=== PATIENT | male | born 1950 | race Caucasian/White ===

== ENCOUNTER 2018-03-18 08:41 | Outpatient (REF) | payer MEDICARE, OTHER, SELFPAY ==
[2018-03-18 12:48] LABS: HCT 40.7 % (40.0-50.0); HGB 14.2 g/dL (13.5-17.5); Mean Corp. HGB Concentration 34.9 g/dL (32.0-36.0); Mean Corpuscular Hemoglobin 32.5 pg (27.0-33.0); Mean Corpuscular Volume 93.1 fL (80-95); Mean Platelet Volume 10.6 fL (8.0-11.0); Platelet Count 172 x1000/uL (130-400); RBC 4.37 m/cumm (4.50-6.00); RBC Distribution Width 13.6 % (11.8-14.1); White Blood Cell Count 5.76 k/cumm (4.4-10.8)
[2018-03-18 13:13] LABS: ALT 44 U/L (12-78); AST 29 U/L (15-37); Alkaline Phosphatase 54 U/L (46-116); Anion Gap 10.9 mmol/L (3-11); BUN 13 mg/dL (7-18); Bilirubin, Total 0.6 mg/dL (0.2-1.0); CO2 25.1 mmol/L (21.0-32.0); Calcium 9.1 mg/dL (8.5-10.1); Chloride 105 mmol/L (98-107); Cholesterol 183 mg/dL (50-200); Estimated GFR 55.23 (mL/min/1.73m2); Glucose 163 mg/dL (70-100); HDL Cholesterol 46 mg/dL (40-60); LDL CHOLESTEROL 115 mg/dL (<100); Potassium 4.7 mmol/L (3.5-5.1); Sodium 141 mmol/L (136-145); Total Protein 7.3 g/dL (6.4-8.2); Triglyceride 125 mg/dL (30-150)
[2018-03-19 09:17] LABS: PSA, Screening 0.8 ng/ml (0-4.5)
== END 2018-03-18 08:42 ==
LOC: NCHCN 08:41
PROVIDERS: PCP Nurse Practitioner Family; Visit Provider Family Medicine
DX: I10 Essential (primary) hypertension (principal); E11.9 Type 2 diabetes mellitus without complications; Z12.5 Encounter for screening for malignant neoplasm of prostate
CPT/HCPCS: 80053; 80061; 83721; 84153; 85027

== ENCOUNTER 2018-04-21 00:48 | Outpatient (CLI) | payer OTHER, MEDICARE, SELFPAY ==
--- NOTE | 2018-04-21 08:23 | DI.US_ITS ---
SYMPTOMS/DIAGNOSIS: FATTY LIVER DISEASE, K76.0 ABDOMINAL ULTRASOUND: Routine examination was performed. The abdominal aorta is within normal limits in size. The liver is enlarged. There is diffuse increased echogenicity of the liver consistent with fatty infiltration. No hepatic mass is seen. There is normal directional flow of the portal vein. There are stones seen within the gallbladder. They appear mobile. No gallbladder thickening, sludge or pericholecystic fluid is seen. The common duct is within normal limits at .7 cm. The pancreatic tail is not visualized due to overlying bowel. The remainder of the pancreas is unremarkable. The spleen is mildly enlarged measuring 14 cm in length. The kidneys are unremarkable. IMPRESSION: 1. Hepatomegaly. Hepatic steatosis. 2. Cholelithiasis. No biliary ductal dilatation.
== END 2018-04-21 01:08 ==
PROVIDERS: PCP Nurse Practitioner Family; Visit Provider Nurse Practitioner Family
DX: K76.0 Fatty (change of) liver, not elsewhere classified (principal); R16.2 Hepatomegaly with splenomegaly, not elsewhere classified; K80.20 Calculus of gallbladder without cholecystitis without obstruction
CPT/HCPCS: 76700

== ENCOUNTER → 2018-06-22 11:10 | Outpatient (BNVA) | payer MEDICARE, OTHER, SELFPAY | PROVIDERS: PCP Nurse Practitioner Family; Visit Provider Surgery | DX: Z12.11 Encounter for screening for malignant neoplasm of colon (principal); Z86.010 Personal history of colon polyps; I10 Essential (primary) hypertension; E11.9 Type 2 diabetes mellitus without complications; Z79.84 Long term (current) use of oral hypoglycemic drugs ==

== ENCOUNTER 2018-06-29 06:21 | Day surgery (SDC) | payer MEDICARE, OTHER, SELFPAY ==
[2018-06-29 06:29] VITALS: BP 101/68; PULSE 84; RESP 16; TEMP 37.1; O2SAT 95
--- NOTE | 2018-06-29 06:48 | COLE_ITS ---
Date of service: 06/29/18 Time of Service: 07:30 Colonoscopy Report Date of procedure: 06/29/18 Pre-op diagnosis general: Hx of polyps Procedure: Colonoscopy with polypectomy by cold forceps and cold snare Surgeon: Deisi Rjaan Anesthesia proc note operative: MAC (Hayde Robbins, [employer]/ ASA 2) Estimated blood loss (mL): 5 Pathology: other (cecal polyp x 2, ascending polyp, transverse polyp, rectal polyp) Complications: None Disposition: same day Indications: Mr. Crespo is a pleasant 68-year-old male who was seen in the office for a colonoscopy. He has a history of polyps. Risk, benefits, complications were reviewed with him and he wished to proceed. No guarantees were given or implied. Prep: Miralax/Dulcolax Procedure Start Time: 07:30 Procedure End Time: 08:16 Retraction Time: 27 minutes Findings: 4 small sessile polyps in the cecum, ascending and transverse colon. One larger adenomatous pendunculated polyp in the rectum Procedure Description: After informed consent was obtained the patient was taken to the procedure room and placed in a left decubitous position. Monitors were applied and a time out was done. The patients name, date of , procedure, allergies to medications and metal in their body was reviewed. The patient was then sedated. Once sedated and comfortable a rectal exam was done. External exam was normal. Internal exam revealed a normal sphincter tone and no palpable masses. The prostate felt smooth. The scope was then introduced and retroflexed. No internal hemorrhoids were identified. The scope was then advanced to the cecum without difficulty. The TI and appendiceal orifice were identified. The prep was OK. There was some stool noted in the rectm and distal sigmoid colon. Liquid stool noted in the right colon which was suctioned out. The scope was then slowly retracted over 27 minutes back into the rectum. 5 polyps were removed. Polyps in the cecum, ascending and transverse colon were removed with cold forceps, rectal polyp was removed with cold snare. The scope was removed and the patient was woken up and taken back to Same day surgery in stable condition. The patient tolerated the procedure well and there were no immediate complications. Follow up: The patient should follow up in 3-5 years unless they develop changes in bowel habits or other new gastrointestinal complaints.
--- NOTE | 2018-06-29 06:50 | PDOC.DSDIS_ITS ---
Discharge Plan Disposition Patient Disposition: HOME Condition: Good Discharge Details Reason For Visit: Hx of polyps Attending Provider: Deisi Rajan Primary Care Provider: Maryann Spaulding Home Meds and New Rx's Prescriptions: Continue tamsulosin [Flomax] 0.4 mg capsule 0.4 mg PO DAILY RF: 0 simvastatin 10 MG tablet 10 mg PO DAILY RF: 0 glipizide 5 MG tablet 5 mg PO DAILY RF: 0 Metoprolol Succinate 50 MG TAB.ER.24H 50 mg PO DAILY Qty: 30 RF: 0 valsartan-hydrochlorothiazide [Diovan HCT] 1 TAB tablet 1 tab PO DAILY RF: 0 aspirin [Aspir-81] 81 MG tablet,delayed release (DR/EC) 1 tab PO DAILY RF: 0 calcium carbonate [Calcium 600] 600 MG tablet 1 tab PO DAILY RF: 0 multivitamin 1 EACH capsule 1 cap PO DAILY RF: 0 sitagliptin-metformin [Janumet] 1 EACH tablet 1 tab PO DAILY RF: 0 coenzyme [id number] 1 EACH capsule 1 cap PO DAILY RF: 0 krill oil 500 MG capsule 1 cap PO DAILY RF: 0 bismuth subsalicylate [Pepto-Bismol] 262 mg/15 mL Suspension 524 mg PO ONCE PRNRF: 0 Discontinued polyethylene glycol 3350 17 gram powder in packet 255 g PO DAILY Qty: 15 RF: 0 bisacodyl [Dulcolax (bisacodyl)] 5 mg tablet,delayed release (DR/EC) 5 mg PO ONCE Qty: 4 RF: 0 Discharge Instructions Instructions: Colonoscopy (DC), Diverticulosis (DC), Colorectal Polyps (DC) Additional Instructions: Findings: multiple polyps diverticulosis Follow up: 3-5 years New Medications: none Please call if you develop: fevers >101.5 Nausea or Vomiting Abdominal pain that is not transient 1. Because there will be medication in your system for the next 24 hours, you may feel a little sleepy. Your coordination will be affected. Therefore: a. Do not drive or operate dangerous equipment for 24 hours. b. Do not drink alcohol beverages for 24 hours (not even beer). c. Plan to go home and rest for the day. 2. Generally there are no restrictions on your activity after a day or so has gone by, but you may feel a bit fatigued for a few days. 3 After you arrive home you may have a light meal and return to a normal diet as you can tolerate it without feeling sick to your stomach. 4. After surgery, you may feel pain or discomfort. This should be only transient , but if it persists please contact your doctor. 5. If there are any questions regarding the findings of your procedure, please feel free to contact your doctor. 6. If you are unable to contact your doctor with a problem, contact the hospital at [phone]. 7. Continue all your regular medications unless directed otherwise. I understand the above instructions and have no questions. Signature of Patient or Responsible Adult Escort Date/Time Name of Responsible Adult Escort Signature of Nurse Date/Time Activity:: Activity as Tolerated Diet:: high fiber diet Discharge Orders Discharge Orders: Discharge Order (Routine); Ordered 06/29/18 Ordered By: Deisi Rajan DS: Diagnosis Discharge Diagnosis (1) History of colonoscopy with polypectomy: Status: Acute (2) Diverticulosis: Status: Acute (3) Colorectal polyps: Status: Acute
[2018-06-29] MEDS: Lactated Ringers 1,000 ML 80 ML IV (07:06)
--- NOTE | 2018-06-29 07:42 | BOWEL_PTH ---
PATIENT: Carl Crespo LOC: [facility] U#:[id number] AGE/SX: 68/M ROOM: RE06/29/[address]: Deisi Rajan MD : [id number] BED: DIS: 06/29/2018 SPEC #: [id number] RECD: 06/29/18 12:36 STATUS: JOHNNIE REQ #: [id number] NADEEN: 06/29/18 07:[address]: Deisi Rajan DEPT: Surgical Specimen RECD BY: Darby Jeffrey ENTERED: 06/29/18 12:38 SP TYPE: Bowel OTHR DR: Maryann Spaulding Tissues: 1 - BIOPSY BOWEL 2 - BIOPSY BOWEL 3 - BIOPSY BOWEL 4 - BIOPSY BOWEL Procedures: GROSS AND MICRO LEVEL 4 Comments: [id number]
[2018-06-29 09:18] VITALS: BP 96/52; PULSE 69; RESP 16; TEMP 36.2; O2SAT 100
== END 2018-06-29 09:15 | disposition home or self-care (01) ==
PROVIDERS: PCP Nurse Practitioner Family; Visit Provider Surgery
PROC: 0DJD8ZZ Inspection of Lower Intestinal Tract, Via Natural or Artificial Opening Endoscopic (ICD-10-PCS; CPT 45378; principal; 2018-06-29 07:30)
DX: Z12.11 Encounter for screening for malignant neoplasm of colon (principal); D12.0 Benign neoplasm of cecum; D12.2 Benign neoplasm of ascending colon; D12.8 Benign neoplasm of rectum; K63.5 Polyp of colon; Z87.19 Personal history of other diseases of the digestive system; I10 Essential (primary) hypertension; E11.9 Type 2 diabetes mellitus without complications; Z79.84 Long term (current) use of oral hypoglycemic drugs; K21.9 Gastro-esophageal reflux disease without esophagitis
CPT/HCPCS: 45380; 45385; 88305

== ENCOUNTER 2019-02-15 02:11 | Outpatient (CLI) | payer MEDICARE, OTHER, SELFPAY ==
--- NOTE | 2019-02-21 11:55 | HOLTER_ITS ---
DATE OF DICTATION: February 19, 2019 DATE OF RECORDING: February 15, 2019 ANALYSIS: February 16, 2019 REFERRING PROVIDER: Cristi Wilkinson M.D. INDICATION: PVC's. FINDINGS: 1. Baseline sinus rhythm, 74-117 bpm, average 89 bpm. 2. Rare PVC, 0.1%, total of 81 PVC's in 24 hours, no ventricular tachycardia. 3. Rare PAC, < 0.1%, no SVT, no AF. 4. No bradycardia or pauses. 5. No symptoms recorded.
== END 2019-02-15 02:31 ==
PROVIDERS: PCP Nurse Practitioner Family; Visit Provider Student in an Organized Health Care Education/Training Program
DX: I49.3 Ventricular premature depolarization (principal)
CPT/HCPCS: 93225

== ENCOUNTER 2019-02-16 17:04 | Outpatient (CLI) | payer MEDICARE, OTHER, SELFPAY | END 2019-02-16 17:24 | PROVIDERS: PCP Nurse Practitioner Family; Visit Provider Student in an Organized Health Care Education/Training Program | DX: I49.3 Ventricular premature depolarization (principal) | CPT/HCPCS: 93226 ==

== ENCOUNTER 2019-02-19 19:54 | Outpatient (CLI) | payer MEDICARE, OTHER, SELFPAY | END 2019-02-19 20:14 | PROVIDERS: PCP Nurse Practitioner Family; Referring Provider Nurse Practitioner Family; Visit Provider Internal Medicine Cardiovascular Disease | DX: I49.3 Ventricular premature depolarization (principal) | CPT/HCPCS: 93227 ==

== ENCOUNTER → 2019-02-23 11:18 | Outpatient (BNVA) | payer MEDICARE, OTHER, SELFPAY | PROVIDERS: PCP Nurse Practitioner Family; Visit Provider Student in an Organized Health Care Education/Training Program | DX: I42.9 Cardiomyopathy, unspecified (principal); I49.3 Ventricular premature depolarization; I35.0 Nonrheumatic aortic (valve) stenosis; I10 Essential (primary) hypertension; E11.9 Type 2 diabetes mellitus without complications; Z79.84 Long term (current) use of oral hypoglycemic drugs | CPT/HCPCS: 99214 ==

== ENCOUNTER 2019-04-28 12:03 | Outpatient (REF) | payer MEDICARE, OTHER, SELFPAY ==
[2019-04-28 22:00] LABS: Abs Immature Grans 0.01 k/cumm (0.0-0.09); Absolute Basophil Count 0.04 k/cumm (0.0-0.2); Absolute Eosinophil Count 0.38 k/cumm (0.0-0.7); Absolute Lymphocyte Count 1.17 k/cumm (1.2-3.4); Absolute Monocyte Count 0.53 k/cumm (0.11-0.7); Absolute Neutrophil Count 3.83 k/cumm (1.2-6.7); Basophils % 0.7; Eosinophils % 6.4; HCT 40.9 % (40.0-50.0); HGB 13.8 g/dL (13.5-17.5); Immature Grans % 0.2; Lymphocytes % 19.6; Mean Corp. HGB Concentration 33.7 g/dL (32.0-36.0); Mean Corpuscular Hemoglobin 32.4 pg (27.0-33.0); Monocytes % 8.9; Neutrophils % 64.2; Platelet Count 186 x1000/uL (130-400); RBC 4.26 m/cumm (4.50-6.00); RBC Distribution Width 12.9 % (11.8-14.1); White Blood Cell Count 5.96 k/cumm (4.4-10.8)
[2019-04-28 22:19] LABS: ALT 38 U/L (16-63); AST 19 U/L (15-37); Albumin 4.1 g/dL (3.4-5.0); Alkaline Phosphatase 46 U/L (46-116); Anion Gap 11.1 mmol/L (3-11); BUN 25 mg/dL (7-18); Bilirubin, Total 0.6 mg/dL (0.2-1.0); CO2 25.9 mmol/L (21.0-32.0); CREATININE 1.44 mg/dL (0.70-1.30); Calcium 9.1 mg/dL (8.5-10.1); Chloride 104 mmol/L (98-107); Estimated GFR 48.93 (mL/min/1.73m2); Glucose 264 mg/dL (70-100); Potassium 4.4 mmol/L (3.5-5.1); Sodium 141 mmol/L (136-145); Total Protein 7.5 g/dL (6.4-8.2)
[2019-04-28 22:58] LABS: Prothrombin Time 10.4 sec (9.3-11.0)
== END 2019-04-28 12:23 ==
LOC: NCHCN 12:03
PROVIDERS: PCP Nurse Practitioner Family; Visit Provider Nurse Practitioner Family
DX: R00.8 Other abnormalities of heart beat (principal); I42.9 Cardiomyopathy, unspecified; E11.9 Type 2 diabetes mellitus without complications
CPT/HCPCS: 80053; 85025; 85610; 85730

== ENCOUNTER 2019-05-02 00:58 | Outpatient (CLI) | payer MEDICARE, OTHER, SELFPAY ==
--- NOTE | 2019-05-02 08:00 | DI.US_ITS ---
SYMPTOM/DIAGNOSIS: FATTY LIVER DISEASE, K76.0 ABDOMEN ULTRASOUND: The aorta and vena cava are unremarkable. Increased echogenicity is noted in the liver which has a maximal diameter of 13.5 cm. The findings would be consistent with fatty infiltration. The gallbladder wall is 2.3 mm. in thickness. A 7.6 mm. region of echogenicity in the gallbladder fundus would be consistent with an adherent gallstone. There is no evidence of ductal dilatation. The pancreas is unremarkable. The spleen measures up to 13.8 cm. suggesting mild splenomegaly. The left kidney measures 12.6 by 5.3 by 5.5 cm. The right kidney measures 11.9 by 6.7 by 6.4 cm. There is no evidence of an abdominal mass or free fluid. SUMMARY: A fatty liver is demonstrated and there is an apparent solitary gallstone in the gallbladder.
== END 2019-05-02 01:18 ==
PROVIDERS: PCP Nurse Practitioner Family; Visit Provider Nurse Practitioner Family
DX: K76.0 Fatty (change of) liver, not elsewhere classified (principal); R16.1 Splenomegaly, not elsewhere classified; K80.70 Calculus of gallbladder and bile duct without cholecystitis without obstruction
CPT/HCPCS: 76700

== ENCOUNTER 2019-06-28 06:51 | Emergency (ER) | payer MEDICARE, OTHER, SELFPAY ==
[2019-06-28 06:54] VITALS: BP 143/64; PULSE 104; RESP 16; TEMP 36.6; O2SAT 99
--- NOTE | 2019-06-28 07:16 | ED.GENADUL_ITS ---
Discharge Plan Disposition Patient Disposition: HOME Condition: Stable Discharge Details Chief Complaint: Orthopedic Clinical Impression: Left knee pain Primary Care Provider: Maryann Spaulding ED Provider: Felicitas Kuhn Home Meds and New Rx's Prescriptions: Continued tamsulosin [Flomax] 0.4 mg capsule 0.4 mg PO DAILY RF: 0 metformin 1,000 mg tablet 1,000 mg PO BID RF: 0 Januvia 100 mg tablet 100 mg PO DAILY RF: 0 simvastatin 10 MG tablet 10 mg PO DAILY RF: 0 Metoprolol Succinate 50 MG TAB.ER.24H 50 mg PO DAILY Qty: 30 RF: 0 glipizide 5 mg tablet 10 mg PO DAILY RF: 0 valsartan-hydrochlorothiazide [Diovan HCT] 1 TAB tablet 1 tab PO DAILY RF: 0 aspirin [Aspir-81] 81 MG tablet,delayed release (DR/EC) 1 tab PO DAILY RF: 0 multivitamin 1 EACH capsule 1 cap PO DAILY RF: 0 krill oil 500 MG capsule 1 cap PO DAILY RF: 0 bismuth subsalicylate [Pepto-Bismol] 262 mg/15 mL Suspension 524 mg PO ONCE PRNRF: 0 Discharge Instructions Instructions: Knee Pain (ED) Additional Instructions: Apply ice to the affected area several times daily for 20 minutes at a time. Alternate Tylenol and Motrin as needed and directed for pain. Rest and elevate your left knee as much as possible. Follow-up with your primary care doctor next week for reevaluation and for possible referral for MRI if your symptoms do not improve or worsen. Return to the emergency department if you develop any worsening or new concerning symptoms. Discharge Data Discharge Date/Time-TO BE ENTERED AT DEPARTURE: 06/28/19 10:20 Discharge Physician: Felicitas Kuhn Medical Decision Making <Carl Mayorga MD - Last Filed: 06/28/19 22:50> Patient presents with complaint of left knee pain that most likely is gout given his history and presentation. However, 2 things are of concern. His entire leg is swollen distally despite him having it elevated over the last 24 hours. Doubt clot but think ultrasound appropriate to rule out. Has pain in medial knee and has been doing a lot bending and kneeling so consider meniscus injury as well. Seems reasonable to dose with colchicine for treatment of acute gout. We will give it a couple of days to see if he gets better and have him follow-up with primary care. If continues to have pain and swelling may need MRI. <Felicitas Kuhn DO - Last Filed: 06/28/19 10:21> 0800 -- Please see Dr. Mayorga's note for initial presentation and plan. 69-year-old male with a history of gout, diabetes, aortic stenosis, hypertension chronic venous insufficiency who presents with left medial knee pain for the past 4 days. He has been kneeling on both knees a lot working on a car but otherwise denies any known injury. Complaining of pain worse with flexion of the knee. Denies any fever, leg or calf pain. Left medial knee tender to touch but without any erythema, lesions or abscess. There is pain with valgus stress flexion. No other ligamentous instability. No calf tenderness. Neurovascular intact. Differential diagnosis includes gout, arthritis, knee strain/sprain, effusion, Meneses's cyst. Presentation/history not consistent with DVT or septic arthritis. Case endorsed to follow-up on left lower extremity Doppler ultrasound to rule out DVT. He was given [address] doses of colchicine per Dr. Mayorga. Plan that if ultrasound negative, to follow-up with the primary care doctor for reevaluation and for referral for MRI if symptoms do not improve or worsen. 1010 --Doppler ultrasound negative for DVT. Patient states his symptoms are improving. He was offered knee immobilizer or Clint wrap and prefers Clint wrap. He was advised to rest, ice and elevate and take Tylenol as needed and directed for pain and Motrin starting in the next few days. He was advised to follow-up with his primary care doctor for reevaluation and to return here with any concerns. HPI <Carl Mayorga MD - Last Filed: 06/28/19 22:50> General Mode of arrival: wheelchair . Date/Time Provider Initiated Documentation: 06/28/19 07:00 . Limitations to Documentation: no limitations . Information obtained by: patient . HPI Narrative: Patient presents to ED with left knee pain and swelling. He reports symptoms started about 4 days ago. Knee bothers him on the medial aspect and is swollen. In the last 24 hours his leg below the knee has become swollen as well. Denies having calf pain. Denies having history of clots. Has had his leg up for most of the last 24 hours. He does report a history of gout but states this does not quite feel the same. He denies any trauma but has been doing a lot of bending and kneeling while working on an old car. He denies fever, chest pain, shortness of breath. He has been using naproxen or ibuprofen without significant relief. He has not taken anything yet this morning. He presents for evaluation. Related Data Home Medications Medication Instructions Recorded Confirmed aspirin [Aspir-81] 1 tab PO DAILY 10/28/13 06/28/19 krill oil 1 cap PO DAILY 10/28/13 06/28/19 multivitamin 1 cap PO DAILY 10/28/13 06/28/19 valsartan-hydrochlorothiazide 1 tab PO DAILY 10/28/13 06/28/19 [Diovan HCT] simvastatin 10 mg PO DAILY tab-cap 04/08/16 06/28/19 tamsulosin 0.4 mg capsule 0.4 mg PO DAILY 04/18/18 06/28/19 bismuth subsalicylate 524 mg PO ONCE PRN 06/25/18 06/28/19 [Pepto-Bismol] glipizide 5 mg tablet 10 mg PO DAILY tab-cap 02/23/19 06/28/19 metformin 1,000 mg tablet 1,000 mg PO BID 02/23/19 06/28/19 sitagliptin 100 mg tablet 100 mg PO DAILY 02/23/19 06/28/19 Allergies Allergy/AdvReac Type Severity Reaction Status Date / Time enalapril Allergy Mild Verified 06/28/19 07:00 nabumetone [From Relafen] Allergy Mild unknown Verified 06/28/19 07:00 hay fever Allergy Mild uri Uncoded 06/28/19 07:00 symptoms General Stated Complaint: Orthopedic TELLY: 4 Review of Systems <Carl Mayorga MD - Last Filed: 06/28/19 22:50> Narrative: As documented in HPI otherwise negative as below. Const: no fever, chills, weakness Resp: no cough, SOB, pleuritic pain CV: no CP, diaphoresis, edema, syncope GI: no abdominal pain, nausea, vomiting, diarrhea Neuro: no headache, numbness, focal weakness, confusion PFSH <Carl Mayorga MD - Last Filed: 06/28/19 22:50> Medical History Aortic stenosis, mild (Chronic) Cardiomyopathy (Chronic) Chronic venous insufficiency (Chronic) Diabetes (Chronic) Hypertension (Chronic) Surgical History History of colonoscopy with polypectomy (Acute ~06/29/18) cecal polyp x 2, ascending polyp, transverse polyp, rectal polyp. History of total right knee replacement (TKR) (Acute) Social History Smoking/Tobacco Use Status: Former Tobacco Use Quit Date: 08/17/00 Pack-years: 30 Tobacco: How many years used: 30 Alcohol Intake: current Alcohol Intake frequency: 0-2 drinks per day Alcohol type: beer Drug use: Never Substance use type: does not use Do you feel safe at home: Yes Do you feel safe in your relationship?: Yes Exam <Carl Mayorga MD - Last Filed: 06/28/19 22:50> Narrative Exam Narrative: Vitals: Afebrile. Slightly elevated blood pressure and heart rate. Normal room air pulse oximetry. Const: WDWN male in NAD. HEENT: NC/AT. Normal facial exam. Eyes: Normal conjunctiva and sclera. Neck: Supple. Trachea midline. Lungs: Normal respiratory effort. Neuro: A+O x 3. CN grossly in tact. Good strength and no focal deficit. Ext: LLE with decreased ROM of the knee, effusion, warmth but no erythema. Tenderness medial aspect of knee. No calf tenderness. LLE edema 2+. NVI distal. Good pulses in foot. Skin: Warm and dry without rash. Course <Carl Mayorga MD - Last Filed: 06/28/19 22:50> Vital Signs Vital signs: Vital Signs Temperature 97.9 F 06/28/19 06:54 Pulse 104 H 06/28/19 06:54 Respiratory Rate 16 06/28/19 06:54 Blood Pressure 143/64 H 06/28/19 06:54 Pulse Oximetry 99 06/28/19 06:54 Temperature 97.9 F 06/28/19 06:54 Temperature Source Temporal Artery Scan 06/28/19 06:54 Pulse 104 H 06/28/19 06:54 Respiratory Rate 16 06/28/19 06:54 Respiratory Effort Non-Labored 06/28/19 06:59 Blood Pressure 143/64 H 06/28/19 06:54 Blood Pressure Position Sitting 06/28/19 06:54 Pulse Oximetry 99 06/28/19 06:54 Oxygen Delivery Method Room Air 06/28/19 06:54 Oxygen Flow Rate 0 06/28/19 06:54 Pain Level 10 06/28/19 07:02 Sign Out <Carl Mayorga MD - Last Filed: 06/28/19 22:50> Sign Out Data: Sign Out Comment: Pending ultrasound of left lower extremity. Last updated by Carl Mayorga MD at 06/28/19 07:50
--- NOTE | 2019-06-28 07:18 | DI.US_ITS ---
EXAM: US LOWER EXTREMITY VENOUS LT CLINICAL HISTORY: LLE pain/swelling TECHNIQUE: Left lower extremity venous ultrasound performed using grayscale, color-flow, and spectra l Doppler analysis. COMPARISON: US ABDOMEN from 05/02/2019 FINDINGS: The left common femoral, femoral and popliteal veins demonstrate normal compressibility, augmentation , and color Doppler. The posterior tibial veins are patent. The saphenofemoral junction appears unrem arkable. There is no evidence of a Meneses's cyst. IMPRESSION: No DVT.
[2019-06-28] MEDS: Colchicine 0.6 MG TAB 1.2 MG PO (07:23)
[2019-06-28] MEDS: Acetaminophen 500 MG TAB 1000 MG PO (07:25)
[2019-06-28] MEDS: Colchicine 0.6 MG TAB PO (08:21)
[2019-06-28 10:21] VITALS: BP 142/68; PULSE 95; RESP 16; TEMP 36.7; O2SAT 97
[2019-06-28 10:22] VITALS: BP 142/68; PULSE 95; TEMP 36.7; O2SAT 97
== END 2019-06-28 10:20 | disposition home or self-care (01) ==
PROVIDERS: Emergency Provider Physician Assistant; PCP Nurse Practitioner Family
DX: M25.562 Pain in left knee (principal); I10 Essential (primary) hypertension; E11.9 Type 2 diabetes mellitus without complications; Z79.84 Long term (current) use of oral hypoglycemic drugs
CPT/HCPCS: 99284; 93971

== ENCOUNTER 2019-07-26 12:33 | Outpatient (REF) | payer MEDICARE, OTHER, SELFPAY ==
[2019-07-26 20:41] LABS: Uric Acid 9.6 mg/dL (3.5-7.2)
== END 2019-07-26 12:53 ==
LOC: NCHCN 12:33
PROVIDERS: PCP Nurse Practitioner Family; Visit Provider Nurse Practitioner Family
DX: I10 Essential (primary) hypertension (principal); E11.9 Type 2 diabetes mellitus without complications; M10.9 Gout, unspecified; K76.0 Fatty (change of) liver, not elsewhere classified; R00.8 Other abnormalities of heart beat; I50.9 Heart failure, unspecified; N40.0 Benign prostatic hyperplasia without lower urinary tract symptoms; G47.33 Obstructive sleep apnea (adult) (pediatric)
CPT/HCPCS: 84550

== ENCOUNTER 2019-10-27 12:21 | Outpatient (REF) | payer MEDICARE, OTHER, SELFPAY ==
[2019-10-27 20:44] LABS: Anion Gap 10.2 mmol/L (3-11); BUN 19 mg/dL (7-18); CO2 27.8 mmol/L (21.0-32.0); CREATININE 1.36 mg/dL (0.70-1.30); Calcium 8.5 mg/dL (8.5-10.1); Chloride 101 mmol/L (98-107); Estimated GFR 52.27 (mL/min/1.73m2); Glucose 279 mg/dL (74-106); Potassium 4.5 mmol/L (3.5-5.1); Sodium 139 mmol/L (136-145); Uric Acid 7.1 mg/dL (3.5-7.2)
== END 2019-10-27 12:41 ==
LOC: NCHCN 12:21
PROVIDERS: PCP Nurse Practitioner Family; Visit Provider Nurse Practitioner Family
DX: E11.9 Type 2 diabetes mellitus without complications (principal); I10 Essential (primary) hypertension; M10.9 Gout, unspecified; K76.0 Fatty (change of) liver, not elsewhere classified; I50.9 Heart failure, unspecified
CPT/HCPCS: 80048; 84550

== ENCOUNTER 2020-05-16 12:36 | Outpatient (REF) | payer MEDICARE, OTHER, SELFPAY ==
[2020-05-16 22:13] LABS: ALT 35 U/L (16-63); AST 17 U/L (15-37); Alkaline Phosphatase 54 U/L (46-116); Anion Gap 9.4 mmol/L (3-11); BUN 19 mg/dL (7-18); Bilirubin, Total 0.5 mg/dL (0.2-1.0); CO2 26.6 mmol/L (21.0-32.0); CREATININE 1.33 mg/dL (0.70-1.30); Calcium 9.2 mg/dL (8.5-10.1); Chloride 106 mmol/L (98-107); Estimated GFR 53.47 (mL/min/1.73m2); Glucose 213 mg/dL (74-106); Potassium 4.4 mmol/L (3.5-5.1); Sodium 142 mmol/L (136-145); Total Protein 6.9 g/dL (6.4-8.2); Uric Acid 6.8 mg/dL (3.5-7.2)
== END 2020-05-16 12:56 ==
LOC: NCHCN 12:36
PROVIDERS: PCP Nurse Practitioner Family; Visit Provider Family Medicine
DX: E11.9 Type 2 diabetes mellitus without complications (principal); M10.9 Gout, unspecified; K76.0 Fatty (change of) liver, not elsewhere classified; K30 Functional dyspepsia
CPT/HCPCS: 80053; 84550

== ENCOUNTER 2020-11-01 13:34 | Outpatient (REF) | payer MEDICARE, OTHER, SELFPAY ==
[2020-11-01 21:25] LABS: BUN 20 mg/dL (7-18); CREATININE 1.3 mg/dL (0.70-1.30); Calcium 9.2 mg/dL (8.5-10.1); Chloride 103 mmol/L (98-107); Glucose 257 mg/dL (74-106); Potassium 4.9 mmol/L (3.5-5.1); Sodium 141 mmol/L (136-145)
== END 2020-11-01 13:35 | disposition home or self-care (01) ==
LOC: NCHCN 13:34
PROVIDERS: PCP Nurse Practitioner Family; Visit Provider Nurse Practitioner Family
DX: E11.9 Type 2 diabetes mellitus without complications (principal); N28.9 Disorder of kidney and ureter, unspecified; K76.0 Fatty (change of) liver, not elsewhere classified
CPT/HCPCS: 80048

== ENCOUNTER 2021-05-07 13:06 | Outpatient (REF) | payer MEDICARE, OTHER, SELFPAY ==
[2021-05-07 21:58] LABS: Abs Immature Grans 0.04 10^3/uL (0.0-0.06); Absolute Basophil Count 0.07 10^3/uL (0.0-0.2); Absolute Eosinophil Count 0.69 10^3/uL (0.0-0.7); Absolute Lymphocyte Count 1.46 10^3/uL (1.2-3.4); Absolute Monocyte Count 0.48 10^3/uL (0.1-0.8); Absolute Neutrophil Count 5.52 10^3/uL (1.2-6.7); Basophils % 0.8; Eosinophils % 8.4; HCT 41.8 % (40.0-50.0); HGB 13.9 g/dL (13.5-17.5); Immature Grans % 0.5; Lymphocytes % 17.7; MCH 31.5 pg (27.0-33.0); MCHC 33.3 % (32.0-36.0); MCV 94.8 fL (80-95); MPV 10.6 fL (8.0-11.0); Monocytes % 5.8; Neutrophils % 66.8; Nucleated RBC 0 %; RBC 4.41 10^6/uL (4.36-5.78); RDW 13.2 % (11.8-14.1); RDW-SD 45.8 fL; WBC 8.26 10^3/uL (4.4-10.8)
[2021-05-07 22:06] LABS: ALT 33 U/L (16-63); AST 20 U/L (15-37); Alkaline Phosphatase 47 U/L (46-116); Anion Gap 9.2 mmol/L (3-11); BUN 17 mg/dL (7-18); Bilirubin, Total 0.5 mg/dL (0.2-1.0); CO2 27.8 mmol/L (21.0-32.0); CREATININE 1.1 mg/dL (0.70-1.30); Calcium 9.1 mg/dL (8.5-10.1); Chloride 104 mmol/L (98-107); Glucose 120 mg/dL (74-106); Potassium 4.4 mmol/L (3.5-5.1); Sodium 141 mmol/L (136-145); Total Protein 7.1 g/dL (6.4-8.2); Uric Acid 6.1 mg/dL (3.5-7.2)
[2021-05-07 22:27] LABS: Platelet Count 196 10^3/uL (130-400)
== END 2021-05-07 13:07 | disposition home or self-care (01) ==
LOC: NCHCN 13:06
PROVIDERS: PCP Nurse Practitioner Family; Visit Provider Nurse Practitioner Family
DX: N28.9 Disorder of kidney and ureter, unspecified (principal); M10.9 Gout, unspecified; K80.20 Calculus of gallbladder without cholecystitis without obstruction; R00.8 Other abnormalities of heart beat; N40.0 Benign prostatic hyperplasia without lower urinary tract symptoms; G47.33 Obstructive sleep apnea (adult) (pediatric); K30 Functional dyspepsia; E11.9 Type 2 diabetes mellitus without complications
CPT/HCPCS: 80053; 84550; 85025

== ENCOUNTER 2021-06-11 00:48 | Outpatient (CLI) | payer MEDICARE, OTHER, SELFPAY ==
--- NOTE | 2021-06-11 | DI.US_ITS ---
Exam(s) US ABDOMEN EXAM: US ABDOMEN CLINICAL HISTORY: FATTY LIVER DISEASE,K76.0,GALLSTONES,K80.20 TECHNIQUE: Ultrasound abdomen performed using standard protocol. COMPARISON: US US ABDOMEN from 05/02/2019 US US ABDOMEN from 05/02/2019 FINDINGS: LIVER: Increased liver echogenicity, consistent with fatty infiltration, similar to the previous exam .. No focal liver lesions are seen.. GALLBLADDER: Single stone gallstone is again noted. No evidence of wall thickening. No pericholecyst ic fluid identified. JONES'S SIGN: Negative. BILIARY SYSTEM: No intrahepatic or extrahepatic biliary ductal dilation. KIDNEYS: Kidneys are symmetric in size. No evidence of renal calculi. No evidence of hydronephrosis. No renal mass or cyst identified. PANCREAS: Normal where visualized. SPLEEN: Not enlarged. ABDOMINAL AORTA AND IVC: Visualized portions normal caliber. ASCITES: None seen. IMPRESSION: Stable appendix steatosis. No focal mass. Solitary gallstone. DATA REPOSITORY:
== END 2021-06-11 01:08 ==
PROVIDERS: PCP Nurse Practitioner Family; Visit Provider Nurse Practitioner Family
DX: K80.20 Calculus of gallbladder without cholecystitis without obstruction (principal); K76.0 Fatty (change of) liver, not elsewhere classified
CPT/HCPCS: 76700

== ENCOUNTER → 2021-08-23 13:44 | Outpatient (BNVA) | payer MEDICARE, OTHER, SELFPAY | PROVIDERS: PCP Nurse Practitioner Family; Referring Provider Nurse Practitioner Family; Visit Provider Physical Therapy Assistant | DX: Z12.11 Encounter for screening for malignant neoplasm of colon (principal); Z86.010 Personal history of colon polyps; I10 Essential (primary) hypertension; E11.9 Type 2 diabetes mellitus without complications ==

== ENCOUNTER 2021-08-30 03:50 | Outpatient (CLI) | payer MEDICARE, OTHER, SELFPAY ==
[2021-08-30 10:06] LABS: Source Nasal/Nares
[2021-08-30 13:21] LABS: COVID-19 PCR Negative (Negative)
== END 2021-08-30 03:51 | disposition home or self-care (01) ==
LOC: LBO 03:50
PROVIDERS: PCP Nurse Practitioner Family; Visit Provider Surgery
DX: Z20.822 Contact with and (suspected) exposure to COVID-19 (principal)
CPT/HCPCS: 87635

== ENCOUNTER 2021-09-02 07:30 | Day surgery (SDC) | payer MEDICARE, OTHER, SELFPAY ==
--- NOTE | 2021-09-02 06:41 | COLE_ITS ---
Colonoscopy Report Date of procedure: 09/02/21 Pre-op diagnosis general: Colon Cancer Screening, hx of colon polyps Post-op diagnosis procedure note: other (polyps and diverticulosis) Procedure: Colonoscopy with polypectomy Surgeon: Deisi Rajan Anesthesia Type: General:No Airway (Hayde Robbins, DEB/ Radha Gracia CRNA) Estimated blood loss (mL): 3 Pathology: other (Ascending polyps x2, transverse polyp, descending polyp x2, rectal polyp) Complications: None Disposition: same day Indications: The patient is here for Colonoscopy pre-op. His last screening was in 2018 and was remarkable for tubulovillious adenoma and tubular adenomatous polyps x 2. He has no family history of colon cancer. He has not had any bowel habit changes. -Discussed colonoscopy bowel prep as well as the procedure. Discussed possible complications of the procedure to include bleeding, pain, perforation, missed small lesion/polyp, sore throat, aspiration and adverse reaction to the medications. Questions were answered to patient?s satisfaction. No guarantees were implied or given. Prep: Miralax/Dulcolax Procedure Start Time: 09:21 Procedure End Time: 10:02 Retraction Time: 29 minutes Findings: multiple pedunculated and sessile polyps Procedure Description: After informed consent was obtained the patient was taken to the procedure room and placed in a left decubitous position. Monitors were applied and a time out was done. The patients name, date of , procedure, allergies to medications and metal in their body was reviewed. The patient was then sedated. Once sedated and comfortable a rectal exam was done. External exam was normal. Internal exam revealed a normal sphincter tone and no palpable masses. The prostate was smooth and enlarged. The scope was then introduced and retro-flexed. NO internal hemorrhoids, polyps or masses were identified on retro-flexion. There were 2 hemorrhoidal skin tags noted on retro-flexion. The scope was then advanced to the cecum without difficulty. The ileocecal vlave and appendiceal orifice were identified. The prep was marginal. almost5 1 l of fluid was used to clean the liquid stool left in the colon. The scope was then slowly retracted over 29 minutes back into the rectum. Polyps were removed with cold forceps in the ascending colon x2, transverse colon x1, descending colon x2 and rectum. There was severe diverticulosis of the descending and sigmoid colon noted. The scope was removed and the patient was woken up and taken back to Same day surgery in stable condition. The patient tolerated the procedure well and there were no immediate complications. Follow up: The patient should follow up in 3 years unless they develop changes in bowel habits or other new gastrointestinal complaints. He should have an enema next time in [facility] prior to his scope.
--- NOTE | 2021-09-02 06:42 | W.PM.DSUDISC ---
Discharge Plan Disposition Patient Disposition: HOME Condition: Good Discharge Details Reason For Visit: Colonoscopy Attending Provider: Deisi Rajan Primary Care Provider: Maryann Spaulding Home Meds and New Rx's Prescriptions: Continued tamsulosin [Flomax] 0.4 mg capsule 0.4 mg PO DAILY RF: 0 metformin 1,000 mg tablet 1,000 mg PO BID RF: 0 simvastatin 10 MG tablet 10 mg PO DAILY RF: 0 allopurinol 100 mg tablet 100 mg PO DAILY RF: 0 metoprolol succinate 50 mg tablet extended release 24 hr 50 mg PO DAILY RF: 0 montelukast [Singulair] 10 mg tablet 10 mg PO DAILY RF: 0 ibuprofen 200 mg capsule 200 mg PO Q6H PRNRF: 0 colchicine 0.6 mg capsule 0.6 mg PO BID RF: 0 glipizide 5 mg tablet 10 mg PO DAILY RF: 0 valsartan-hydrochlorothiazide [Diovan HCT] 1 TAB tablet 1 tab PO DAILY RF: 0 aspirin [Aspir-81] 81 MG tablet,delayed release (DR/EC) 1 tab PO DAILY RF: 0 multivitamin 1 EACH capsule 1 cap PO DAILY RF: 0 krill oil 500 MG capsule 1 cap PO DAILY RF: 0 Discontinued polyethylene glycol 3350 17 gram/dose powder 238 g PO ONCE Qty: 238 RF: 0 bisacodyl [Dulcolax (bisacodyl)] 5 mg tablet,delayed release (DR/EC) 5 mg PO ONCE Qty: 4 RF: 0 Discharge Instructions Instructions: Diverticulosis (DC), Colorectal Polyps (DC) Additional Instructions: Findings: multiple polyps and diverticulosis Follow up: 3 years Please call if you develop: fevers >101.5 Nausea or Vomiting Abdominal pain that is not transient Rectal bleeding that is more then a tbsp A hard abdomen and inability to pass gas DAY SURGERY UNIT POST ENDOSCOPY INSTRUCTIONS Instructions for everyone who is given Anesthesia: For your safety, please do the following for the next 24 Hours: a. [address] not drive or operate dangerous equipment b. Do not drink alcohol beverages or use any recreational drugs for the first 24 hours or while taking pain medications. The medications in your body may have a reaction that can be dangerous. c. Do not make any important decisions or sign any important papers 1. Generally there are no restrictions on your activity after a day or so has gone by, but you may feel a bit fatigued for a few days. 2. After you arrive home you may have a light meal and return to a normal diet as you can tolerate it without feeling sick to your stomach. 3. After surgery, you may feel pain or discomfort. This should be only transient, but if it persists please contact your doctor. 4. If there are any questions regarding the findings of your procedure, please feel free to contact your doctor. 6. If you are unable to contact your doctor with a problem, contact the hospital at [phone]. 7. Continue all your regular medications unless directed otherwise. I understand the above instructions and have no questions. Signature of Patient or Responsible Adult Escort Date/Time Name of Responsible Adult Escort Signature of Nurse Date/Time Activity:: Activity as Tolerated Diet:: high fiber diet Discharge Orders Discharge Orders: Discharge Order (Routine); Ordered 09/02/21 Ordered By: Deisi Rajan
[2021-09-02 07:46] VITALS: BP 123/72; PULSE 98; RESP 16; TEMP 36.3; O2SAT 99
[2021-09-02] MEDS: Lactated Ringers 1,000 ML 80 ML IV (08:13)
--- NOTE | 2021-09-02 08:26 | W.ANESPRE ---
General Info Date of Service Date Performed: 09/02/21 Height: 6 ft 4 in Weight: 123.5 kg Body Mass Index (BMI): 33.1 Surgical Procedure: Operation Date: 09/02/21 09:35 Proposed Procedures Side Surgeon p Colonoscopy Deisi Rajan MD Meds Allergies and Home Medications Allergies Allergy/AdvReac Type Severity Reaction Status Date / Time enalapril Allergy Mild Verified 09/02/21 08:00 nabumetone [From Relafen] Allergy Mild unknown Verified 09/02/21 08:00 hay fever Allergy Mild uri Uncoded 09/02/21 08:00 symptoms Home Medication Medication Instructions Recorded aspirin [Aspir-81] 1 tab PO DAILY 10/28/13 krill oil 1 cap PO DAILY 10/28/13 multivitamin 1 cap PO DAILY 10/28/13 valsartan-hydrochlorothiazide 1 tab PO DAILY 10/28/13 [Diovan HCT] simvastatin 10 mg PO DAILY tab-cap 04/08/16 tamsulosin 0.4 mg capsule 0.4 mg PO DAILY 04/18/18 metformin 1,000 mg tablet 1,000 mg PO BID 02/23/19 allopurinol 100 mg tablet 100 mg PO DAILY 03/21/21 colchicine 0.6 mg capsule 0.6 mg PO BID 03/21/21 ibuprofen 200 mg capsule 200 mg PO Q6H PRN 03/21/21 metoprolol succinate 50 mg 50 mg PO DAILY 03/21/21 tablet,extended release 24 hr montelukast 10 mg tablet 10 mg PO DAILY 03/21/21 bisacodyl 5 mg tablet,delayed 5 mg PO ONCE #4 tab 08/23/21 release glipizide 5 mg tablet 10 mg PO DAILY tab-cap 08/23/21 polyethylene glycol 3350 17 238 g PO ONCE #238 g 08/23/21 gram/dose oral powder Current Visit Medications: Current Medications Generic Name Dose Route Start Last Admin Trade Name Freq PRN Reason Stop Dose Admin Hyoscyamine Sulfate 0.125 mg 09/02/21 06:42 Hyoscyamine 0.125 Mg Sl/Oral/Chew SL DIRECTED PRN Ringer's Solution 1,000 mls @ 80 mls/hr 09/02/21 06:00 09/02/21 08:13 IV 09/29/21 23:59 80 mls/hr INFUSION KENY Administration IV Miscellaneous Supplies 1 each 09/02/21 06:00 Iv Access IV 09/29/21 23:59 DIRECTED KENY Ondansetron HCl 4 mg 09/02/21 06:42 Ondansetron 4 Mg/2 Ml Vial IVP Q4H PRN PRN Nausea / Vomiting Sodium Chloride 0 ml 09/02/21 06:00 Normal Saline Flush 10 Ml Syr IV 09/29/21 23:59 PRN PRN Sodium Chloride 0 ml 09/02/21 06:00 Normal Saline 10 Ml Vial IJ 09/29/21 23:59 DIRECTED PRN Sterile Water 0 ml 09/02/21 06:00 Water,Injection,Sterile 10 Ml Vial IJ 09/29/21 23:59 DIRECTED PRN PFSH Active Problems Active Problems: Problem Status Onset Code Erectile dysfunction N52.9 Hernia, ventral K43.9 Pedal edema R60.0 Heart failure I50.9 Ventricular bigeminy I49.8 Fatty liver disease, nonalcoholic K76.0 Gallstones K80.20 Gout M10.9 Renal insufficiency N28.9 Retinopathy H35.00 BPH (benign prostatic hyperplasia) N40.0 DENNIS (obstructive sleep apnea) G47.33 Dyspepsia R10.13 Obesity E66.9 Hepatosplenomegaly R16.2 Screening for colon cancer Z12.11 Allergic rhinitis due to allergen J30.9 Nasal septal spur J34.89 Nasal septal deviation J34.2 Nasal polyps J33.9 Colorectal polyps K63.5 Diverticulosis K57.90 History of colonoscopy with polypectomy ~06/29/18 Z98.890, Z86.010 Cardiomyopathy I42.9 Aortic stenosis, mild I35.0 Hypertension I10 Chronic venous insufficiency I87.2 Diabetes E11.9 Medical History Medical History Tubular adenoma of colon Tubulovillous adenoma of colon Surgical History Surgical History History of total right knee replacement (TKR) Tobacco Smoking/Tobacco Use Status: Former Tobacco Use Tobacco: How many years used: 30 Alcohol Alcohol Intake: current Alcohol intake frequency: 0-2 drinks per day Alcohol type: beer Substance Use Substance use: Never Substance use type: does not use Vital Signs and Lab Results Vital Signs Most Recent Vital Signs in EMR: Most Recent Vital Signs Temp Pulse Resp BP Pulse Ox 36.3 C L 98 H 16 123/72 99 09/02/21 07:46 09/02/21 07:46 09/02/21 07:46 09/02/21 07:46 09/02/21 07:46 Point of Care Results Point of Care Results: Finger Stick Blood Glucose 228 09/02/21 07:54 Lab Results Blood Type / Crossmatch: No Data to Display Complete Blood Count: No Data to Display Complete Metabolic Panel: No Data to Display Liver Function Panel: No Data to Display Coagulation Panel: No Data to Display Cardiac Panel: No Data to Display Arterial Blood Gas: No Data to Display Venous Blood Gas: No Data to Display Pancreas Panel: No Data to Display Thyroid Panel: No Data to Display Infectious Disease: Coronavirus (COVID-19)(PCR) Negative (Negative) 08/30/21 08:37 08/30/21 Coronavirus 2019 Source Nasal/Nares 08/30/21 08:37 08/30/21 Blood Cultures: No Data to Display Toxicology Panel: No Data to Display Imaging and Studies Imaging and Studies Study information below may be from another EMR and interpreted by another provider. Please see original notes in EMR for more complete details. Echocardiogram Summary: 05/05/2017: 1. Left ventricle: The cavity size was normal. Wall thickness was normal. Systolic function was mildly reduced. The estimated ejection fraction was 45-50%. Diffuse hypokinesis. 2. Aortic valve: Valve mobility was restricted. There was mild stenosis. There was trivial regurgitation. VTI ratio of LVOT to aortic valve: 0.43. Valve area (VTI): 1.5cm^2. 3. Mitral valve: Moderately calcified annulus. Mildly thickened leaflets. There was mild regurgitation. 4. Left atrium: The atrium was mildly dilated. 5. Right ventricle: The cavity size was normal. Wall thickness was normal. Systolic function was normal. Anesthesia Assessment and Plan Anesthesia History Personal History: No History of Anesthesia Complications Family History: No Family History of Anesthesia Complications Exercise Tolerance Exercise Tolerance: Metabolic Equivalents>4 Pertinent Negatives Pertinent Negatives: No Symptoms of GERD Cardiac & Pulmonary Exam Cardiac Exam: Normal S1/S2 Heart Sounds Pulmonary Exam: Clear Bilateral Breath Sounds Implantable Cardiac Device Does patient have a Pacemaker or an ICD?: No Airway Exam Known Difficult Airway: No Mallampati Class: 2 Mouth Opening: Normal (> 3cm) Thyromental Distance: Greater than 3 cm Neck Range of Motion: Full ROM Neck Circumference: Thick Teeth Condition: Removable Dentures/Plates Upper and Removable Dentures/Plates Lower ASA Classification ASA Score: ASA 2 Emergency Case?: No NPO Status NPO Status: NPO Clears >2 hours, Solids >8 hours Anesthesia Plan Resuscitation Status: Full Code Anesthesia Technique: General Anesthesia Airway Planned: Natural Airway Monitors Used: Standard Monitors
[2021-09-02 08:41] VITALS: BMI 33.1
--- NOTE | 2021-09-02 09:30 | BOWEL_PTH ---
PATIENT: Carl Crespo LOC: [facility] U#:[id number] AGE/SX: 71/M ROOM: RE09/02/[address]: Deisi Rajan MD : 1950 BED: DIS: 09/02/2021 SPEC #: [id number] RECD: 09/02/21 12:33 STATUS: JOHNNIE RE #: [id number] NADEEN: 09/02/21 09:[address]: Deisi Rajan DEPT: Surgical Specimen RECD BY: Darby Jeffrey ENTERED: 09/02/21 12:35 SP TYPE: Bowel OTHR DR: Maryann Spaulding Tissues: 1 - BIOPSY BOWEL 2 - BIOPSY BOWEL 3 - BIOPSY BOWEL 4 - BIOPSY BOWEL Procedures: GROSS AND MICRO LEVEL 4 Comments: [id number]
[2021-09-02 10:11] VITALS: BP 103/57; PULSE 85; RESP 20; TEMP 36.4; O2SAT 96
--- NOTE | 2021-09-02 10:14 | W.ANESPOSTOP ---
Postoperative Evaluation Date, Time and Location Date Performed: 09/02/21 Time Performed: 10:14 Patient Location: Day Surgery Unit Vital Signs Most Recent Imported Vital Signs: Most Recent Vital Signs Temp Pulse Resp BP Pulse Ox 36.4 C L 85 20 103/57 L 96 09/02/21 10:11 09/02/21 10:11 09/02/21 10:11 09/02/21 10:11 09/02/21 10:11 Pain Score Most Recent Pain Score: Most Recent Pain Score Pain Level 0 09/02/21 10:11 Assessment Mental Status: Awake (Alert & Oriented to Patient Baseline) Airway and Respiratory Function: Patent airway with normal (patient baseline) respiratory exam Cardiovascular Function: Hemodynamically Stable Hydration Status: Adequately Hydrated Nausea & Vomiting: No Nausea or Vomiting Pain: Pt. Denies Any Pain Peripheral Nerve Block: Patient did not receive a nerve block
[2021-09-02 10:46] VITALS: BP 110/66; PULSE 72; RESP 18; TEMP 36.6; O2SAT 98
== END 2021-09-02 10:56 | disposition home or self-care (01) ==
LOC: SUR 07:30
PROVIDERS: PCP Nurse Practitioner Family; Visit Provider Surgery
PROC: 0DJD8ZZ Inspection of Lower Intestinal Tract, Via Natural or Artificial Opening Endoscopic (ICD-10-PCS; CPT 45378; principal; 2021-09-02 09:30)
DX: Z12.11 Encounter for screening for malignant neoplasm of colon (principal); D12.2 Benign neoplasm of ascending colon; D12.8 Benign neoplasm of rectum; Z86.010 Personal history of colon polyps; K57.30 Diverticulosis of large intestine without perforation or abscess without bleeding; D12.4 Benign neoplasm of descending colon; D12.3 Benign neoplasm of transverse colon
CPT/HCPCS: 45380; 88305; J2001; J2704

== ENCOUNTER 2021-11-04 11:38 | Outpatient (REF) | payer MEDICARE, OTHER, SELFPAY ==
[2021-11-04 21:04] LABS: Uric Acid 6.5 mg/dL (3.5-7.2)
== END 2021-11-04 11:39 | disposition home or self-care (01) ==
LOC: NCHCN 11:38
PROVIDERS: PCP Nurse Practitioner Family; Visit Provider Nurse Practitioner Family
DX: M10.9 Gout, unspecified (principal); N28.9 Disorder of kidney and ureter, unspecified; E11.9 Type 2 diabetes mellitus without complications
CPT/HCPCS: 84550

== ENCOUNTER 2022-06-05 11:47 | Outpatient (REF) | payer MEDICARE, OTHER, SELFPAY ==
[2022-06-05 15:19] LABS: Abs Immature Grans 0.03 10^3/uL (0.0-0.06); Absolute Basophil Count 0.06 10^3/uL (0.0-0.2); Absolute Eosinophil Count 0.53 10^3/uL (0.0-0.7); Absolute Lymphocyte Count 1.22 10^3/uL (1.2-3.4); Absolute Monocyte Count 0.46 10^3/uL (0.1-0.8); Absolute Neutrophil Count 3.48 10^3/uL (1.2-6.7); Eosinophils % 9.2; HCT 41.2 % (40.0-50.0); Immature Grans % 0.5; Lymphocytes % 21.1; MCH 32.6 pg (27.0-33.0); MCV 96 fL (80-95); MPV 10.3 fL (8.0-11.0); Neutrophils % 60.2; Platelet Count 172 10^3/uL (130-400); RBC 4.29 10^6/uL (4.36-5.78); RDW 12.9 % (11.8-14.1); RDW-SD 45.1 fL; WBC 5.78 10^3/uL (4.4-10.8)
[2022-06-05 15:45] LABS: ALT 33 U/L (16-63); AST 24 U/L (15-37); Alkaline Phosphatase 48 U/L (46-116); Anion Gap 8.7 mmol/L (3-11); BUN 21 mg/dL (7-18); Bilirubin, Total 0.6 mg/dL (0.2-1.0); CO2 28.3 mmol/L (21.0-32.0); CREATININE 1.4 mg/dL (0.70-1.30); Calcium 9.4 mg/dL (8.5-10.1); Chloride 107 mmol/L (98-107); Estimated GFR 54.07 (mL/min/1.73m2); Glucose 295 mg/dL (74-106); Magnesium 1.7 mg/dL (1.8-2.4); Potassium 5.7 mmol/L (3.5-5.1); Sodium 144 mmol/L (136-145); Total Protein 7.1 g/dL (6.4-8.2); Uric Acid 7.8 mg/dL (3.5-7.2)
[2022-06-05 16:32] LABS: Vitamin B12 400 pg/mL (193-986)
== END 2022-06-05 11:48 | disposition home or self-care (01) ==
LOC: NCHCN 11:47
PROVIDERS: PCP Nurse Practitioner Family; Visit Provider Nurse Practitioner Family
DX: N28.9 Disorder of kidney and ureter, unspecified (principal); E11.9 Type 2 diabetes mellitus without complications; I10 Essential (primary) hypertension; E66.9 Obesity, unspecified; K76.0 Fatty (change of) liver, not elsewhere classified; M10.9 Gout, unspecified
CPT/HCPCS: 80053; 82607; 83735; 84550; 85025

== ENCOUNTER 2022-06-16 15:32 | Outpatient (REF) | payer MEDICARE, OTHER, SELFPAY ==
[2022-06-16 15:51] LABS: Anion Gap 6.7 mmol/L (3-11); BUN 18 mg/dL (7-18); CO2 29.3 mmol/L (21.0-32.0); CREATININE 1.4 mg/dL (0.70-1.30); Calcium 9.2 mg/dL (8.5-10.1); Chloride 106 mmol/L (98-107); Estimated GFR 54.07 (mL/min/1.73m2); Glucose 181 mg/dL (74-106); Magnesium 1.8 mg/dL (1.8-2.4); Potassium 5.1 mmol/L (3.5-5.1); Sodium 142 mmol/L (136-145)
== END 2022-06-16 15:33 | disposition home or self-care (01) ==
LOC: NCHCN 15:32
PROVIDERS: PCP Nurse Practitioner Family; Visit Provider Nurse Practitioner Family
DX: E87.5 Hyperkalemia (principal); N28.89 Other specified disorders of kidney and ureter
CPT/HCPCS: 80048; 83735

== ENCOUNTER 2022-11-20 12:28 | Outpatient (REF) | payer MEDICARE, OTHER, SELFPAY ==
[2022-11-20 14:58] LABS: Anion Gap 9.3 mmol/L (3-11); BUN 22 mg/dL (7-18); CO2 27.7 mmol/L (21.0-32.0); CREATININE 1.2 mg/dL (0.70-1.30); Calcium 9.3 mg/dL (8.5-10.1); Chloride 105 mmol/L (98-107); Estimated GFR 65.06 (mL/min/1.73m2); Glucose 335 mg/dL (74-106); Hemoglobin A1C 7.4 % (<5.7); Potassium 4.7 mmol/L (3.5-5.1); Sodium 142 mmol/L (136-145)
[2022-11-20 22:45] LABS: PSA, Screening 0.8 ng/mL (<=6.5)
== END 2022-11-20 12:29 | disposition home or self-care (01) ==
LOC: NCHCN 12:28
PROVIDERS: PCP Nurse Practitioner Family; Visit Provider Nurse Practitioner Family
DX: E11.9 Type 2 diabetes mellitus without complications (principal); I10 Essential (primary) hypertension; M10.9 Gout, unspecified; N18.9 Chronic kidney disease, unspecified; K76.0 Fatty (change of) liver, not elsewhere classified; R00.8 Other abnormalities of heart beat; N40.0 Benign prostatic hyperplasia without lower urinary tract symptoms; Z12.5 Encounter for screening for malignant neoplasm of prostate
CPT/HCPCS: 80048; 84153; 83036

== ENCOUNTER 2023-05-25 13:36 | Outpatient (REF) | payer MEDICARE, OTHER, SELFPAY ==
[2023-05-25 14:52] LABS: Abs Immature Grans 0.03 10^3/uL (0.0-0.06); Absolute Basophil Count 0.05 10^3/uL (0.0-0.2); Absolute Eosinophil Count 0.32 10^3/uL (0.0-0.7); Absolute Lymphocyte Count 1.09 10^3/uL (1.2-3.4); Absolute Monocyte Count 0.47 10^3/uL (0.1-0.8); Absolute Neutrophil Count 4.75 10^3/uL (1.2-6.7); Basophils % 0.7; Eosinophils % 4.8; HCT 41.6 % (40.0-50.0); HGB 14.4 g/dL (13.5-17.5); Immature Grans % 0.4; Lymphocytes % 16.2; MCH 32.4 pg (27.0-33.0); MCHC 34.6 % (32.0-36.0); MCV 94 fL (80-95); MPV 10.3 fL (8.0-11.0); Neutrophils % 70.9; Platelet Count 165 10^3/uL (130-400); RBC 4.44 10^6/uL (4.36-5.78); RDW 12.4 % (11.8-14.1); RDW-SD 42.5 fL; WBC 6.71 10^3/uL (4.4-10.8)
[2023-05-25 16:06] LABS: ALT 47 U/L (16-63); AST 23 U/L (15-37); Alkaline Phosphatase 57 U/L (46-116); Anion Gap 10.9 mmol/L (3-11); BUN 23 mg/dL (7-18); Bilirubin, Total 0.8 mg/dL (0.2-1.0); CO2 26.1 mmol/L (21.0-32.0); CREATININE 1.4 mg/dL (0.70-1.30); Calcium 9.6 mg/dL (8.5-10.1); Calculated LDL 84 mg/dL (<100); Chloride 100 mmol/L (98-107); Cholesterol 172 mg/dL (<200); Estimated GFR 53.74 (mL/min/1.73m2); Glucose 362 mg/dL (74-106); HDL Cholesterol 46 mg/dL (40-60); Magnesium 1.8 mg/dL (1.8-2.4); Potassium 4.7 mmol/L (3.5-5.1); Sodium 137 mmol/L (136-145); Total Protein 7.4 g/dL (6.4-8.2); Triglyceride 213 mg/dL (<150); Vitamin B12 375 pg/mL (193-986)
[2023-05-25 16:35] LABS: Uric Acid 7.1 mg/dL (3.5-7.2)
== END 2023-05-25 13:37 | disposition home or self-care (01) ==
LOC: NCHCN 13:36
PROVIDERS: PCP Nurse Practitioner Family; Visit Provider Nurse Practitioner Family
DX: N18.9 Chronic kidney disease, unspecified (principal); E83.42 Hypomagnesemia; K76.0 Fatty (change of) liver, not elsewhere classified; I50.9 Heart failure, unspecified; E66.9 Obesity, unspecified
CPT/HCPCS: 80053; 80061; 82607; 83735; 84550; 85025

== ENCOUNTER → 2023-05-29 02:43 | Outpatient (CLI) | payer MEDICARE, OTHER, SELFPAY ==
--- NOTE | 2023-05-29 | DI.US_ITS ---
Exam(s) US ABDOMEN LIMITED EXAM: US ABDOMEN LIMITED CLINICAL HISTORY: FATTY LIVER DISEASE K76.0 TECHNIQUE: Ultrasound abdomen performed using standard protocol. COMPARISON: US US ABDOMEN from 04/21/2018 US US ABDOMEN from 05/02/2019 US US ABDOMEN from 06/11/2021 FINDINGS: LIVER: Large. Increased echogenicity and decreased through transmission consistent with hepatic stea tosis. Posterior portions of the liver are not well seen. No gross evidence of focal liver lesion. GALLBLADDER: Single mobile gallstone again noted. No evidence of wall thickening. No pericholecystic fluid identified. JONES'S SIGN: Negative. BILIARY SYSTEM: No intrahepatic or extrahepatic biliary ductal dilation. KIDNEYS: Kidneys are symmetric in size. No evidence of renal calculi. No evidence of hydronephrosis. No renal mass or cyst identified. PANCREAS: Normal where visualized. SPLEEN: Not enlarged. ABDOMINAL AORTA AND IVC: Visualized portions normal caliber. ASCITES: None seen. IMPRESSION: Hepatic steatosis. DATA REPOSITORY:
== END ==
PROVIDERS: PCP Nurse Practitioner Family; Visit Provider Nurse Practitioner Family
DX: K76.0 Fatty (change of) liver, not elsewhere classified (principal)
CPT/HCPCS: 76705

== ENCOUNTER 2023-11-16 11:15 | Outpatient (REF) | payer MEDICARE, SELFPAY ==
[2023-11-16 16:03] LABS: Anion Gap 8.6 mmol/L (3-11); BUN 30 mg/dL (7-18); CO2 27.4 mmol/L (21.0-32.0); CREATININE 1.6 mg/dL (0.70-1.30); Calcium 9.7 mg/dL (8.5-10.1); Chloride 106 mmol/L (98-107); Estimated GFR 45.78 (mL/min/1.73m2); Glucose 351 mg/dL (74-106); Potassium 5.4 mmol/L (3.5-5.1); Sodium 142 mmol/L (136-145)
== END 2023-11-16 11:16 | disposition home or self-care (01) ==
LOC: NCHCN 11:15
PROVIDERS: PCP Nurse Practitioner Family; Visit Provider Nurse Practitioner Family
DX: I10 Essential (primary) hypertension (principal); N40.1 Benign prostatic hyperplasia with lower urinary tract symptoms
CPT/HCPCS: 80048; 84153

== ENCOUNTER 2023-11-23 09:37 | Outpatient (CLI) | payer MEDICARE, SELFPAY ==
[2023-11-23 07:34] LABS: Anion Gap 6.4 mmol/L (3-11); BUN 20 mg/dL (7-18); CO2 27.6 mmol/L (21.0-32.0); CREATININE 1.5 mg/dL (0.70-1.30); Calcium 9.1 mg/dL (8.5-10.1); Chloride 103 mmol/L (98-107); Estimated GFR 49.47 (mL/min/1.73m2); Glucose 183 mg/dL (74-106); Sodium 137 mmol/L (136-145)
== END 2023-11-23 09:38 | disposition home or self-care (01) ==
LOC: LBO 09:38
PROVIDERS: PCP Nurse Practitioner Family; Visit Provider Nurse Practitioner Family
DX: N18.9 Chronic kidney disease, unspecified (principal)
CPT/HCPCS: 36415; 80048

== ENCOUNTER 2024-01-04 15:13 | Outpatient (REF) | payer MEDICARE, SELFPAY ==
[2024-01-04 15:51] LABS: Anion Gap 7.5 mmol/L (3-11); BUN 22 mg/dL (7-18); CO2 30.5 mmol/L (21.0-32.0); CREATININE 1.4 mg/dL (0.70-1.30); Calcium 9.1 mg/dL (8.5-10.1); Chloride 103 mmol/L (98-107); Estimated GFR 53.74 (mL/min/1.73m2); Glucose 346 mg/dL (74-106); Potassium 4.9 mmol/L (3.5-5.1); Sodium 141 mmol/L (136-145)
== END 2024-01-04 15:14 | disposition home or self-care (01) ==
LOC: NCHCN 15:13
PROVIDERS: PCP Nurse Practitioner Family; Visit Provider Nurse Practitioner Family
DX: N18.9 Chronic kidney disease, unspecified (principal)
CPT/HCPCS: 80048

== ENCOUNTER 2024-02-23 15:26 | Outpatient (REF) | payer MEDICARE, SELFPAY ==
[2024-02-23 15:20] LABS: Bilirubin Negative (Negative); Blood Trace-lysed (Negative); Clarity Clear (Clear); Glucose >=1000 mg/dL (Negative); Ketones Negative (Negative); Leukocyte Esterase Negative (Negative); Nitrite Negative (Negative); Specific Gravity 1.015 (1.005-1.025); Urobilinogen 0.2 mg/dL (Up to 0.2)
[2024-02-23 16:37] LABS: COMMENT (LAB VIEW ONLY) 59.55 mg/dL
[2024-02-23 16:43] LABS: Microalb ug/mg Crea 169.3 ug/mg Cr
[2024-02-23 16:49] LABS: Bacteria Negative HPF (Negative); C & S Indicated? No/Sq. Contamination; Casts Negative LPF (Negative); Crystals Negative HPF (Negative); Epithelial Cells Many HPF (Negative); Mucus Negative (Negative); RBC 0-2 HPF (0-2); WBC 0-2 HPF (0-5)
== END 2024-02-23 15:27 | disposition home or self-care (01) ==
LOC: NCHCN 15:26
PROVIDERS: PCP Nurse Practitioner Family; Visit Provider Nurse Practitioner Family
DX: I35.0 Nonrheumatic aortic (valve) stenosis (principal); I42.9 Cardiomyopathy, unspecified; N18.9 Chronic kidney disease, unspecified; I50.9 Heart failure, unspecified
CPT/HCPCS: 81003; 81015; 82043; 82570

== ENCOUNTER 2024-03-29 22:12 | Outpatient (REF) | payer MEDICARE, SELFPAY ==
[2024-03-29 22:25] LABS: Anion Gap 8.5 mmol/L (3-11); BUN 15 mg/dL (7-18); CO2 31.5 mmol/L (21.0-32.0); CREATININE 1.2 mg/dL (0.70-1.30); Calcium 10.1 mg/dL (8.5-10.1); Chloride 103 mmol/L (98-107); Estimated GFR 64.25 (mL/min/1.73m2); Glucose 230 mg/dL (74-106); Potassium 5.1 mmol/L (3.5-5.1); Sodium 143 mmol/L (136-145)
== END 2024-03-29 22:13 | disposition home or self-care (01) ==
LOC: NCHCN 22:12
PROVIDERS: PCP Nurse Practitioner Family; Visit Provider Nurse Practitioner Family
DX: N18.9 Chronic kidney disease, unspecified (principal)
CPT/HCPCS: 80048

== ENCOUNTER 2024-05-31 13:01 | Outpatient (REF) | payer MEDICARE, SELFPAY ==
[2024-05-31 14:22] LABS: Abs Immature Grans 0.02 10^3/uL (0.0-0.06); Absolute Basophil Count 0.04 10^3/uL (0.0-0.2); Absolute Eosinophil Count 0.37 10^3/uL (0.0-0.7); Absolute Lymphocyte Count 0.94 10^3/uL (1.2-3.4); Absolute Monocyte Count 0.53 10^3/uL (0.1-0.8); Absolute Neutrophil Count 4.13 10^3/uL (1.2-6.7); Basophils % 0.7 %; Eosinophils % 6.1 %; HCT 42.6 % (40.0-50.0); HGB 14.6 g/dL (13.5-17.5); Immature Grans % 0.3 %; Lymphocytes % 15.6 %; MCH 32.8 pg (27.0-33.0); MCHC 34.3 % (32.0-36.0); MCV 96 fL (80-95); MPV 9.8 fL (8.0-11.0); Monocytes % 8.8 %; Neutrophils % 68.5 %; Platelet Count 201 10^3/uL (130-400); RBC 4.45 10^6/uL (4.36-5.78); RDW 12.9 % (11.8-14.1); RDW-SD 45.5 fL; WBC 6.03 10^3/uL (4.4-10.8)
[2024-05-31 15:09] LABS: ALT 39 U/L (16-63); AST 26 U/L (15-37); Albumin 4.1 g/dL (3.4-5.0); Alkaline Phosphatase 61 U/L (46-116); Anion Gap 9.6 mmol/L (3-11); BUN 18 mg/dL (7-18); Bilirubin, Total 1.13 mg/dL (0.2-1.0); CO2 26.4 mmol/L (21.0-32.0); CREATININE 1.3 mg/dL (0.70-1.30); Calcium 9.6 mg/dL (8.5-10.1); Calculated LDL 91 mg/dL (<100); Chloride 107 mmol/L (98-107); Cholesterol 171 mg/dL (<200); Estimated GFR 58.37 (mL/min/1.73m2); Glucose 172 mg/dL (74-106); HDL Cholesterol 62 mg/dL (40-60); Potassium 5.5 mmol/L (3.5-5.1); Sodium 143 mmol/L (136-145); Total Protein 7.4 g/dL (6.4-8.2); Triglyceride 90 mg/dL (<150); Vitamin B12 305 pg/mL (193-986)
[2024-05-31 17:11] LABS: Hemoglobin A1C 5.9 % (<5.7)
[2024-05-31 22:51] LABS: PSA, Screening 0.9 ng/mL (<=6.5)
== END 2024-05-31 13:02 | disposition home or self-care (01) ==
LOC: NCHCN 13:01
PROVIDERS: PCP Nurse Practitioner Family; Visit Provider Nurse Practitioner Family
DX: E11.9 Type 2 diabetes mellitus without complications; N40.1 Benign prostatic hyperplasia with lower urinary tract symptoms
CPT/HCPCS: 80053; 80061; 84153; 82607; 83036; 83735; 85025

== ENCOUNTER 2024-06-06 15:51 | Outpatient (REF) | payer MEDICARE, SELFPAY ==
[2024-06-06 21:49] LABS: BUN 19 mg/dL (7-18); CREATININE 1.2 mg/dL (0.70-1.30); Calcium 9.5 mg/dL (8.5-10.1); Chloride 107 mmol/L (98-107); Estimated GFR 64.25 (mL/min/1.73m2); Glucose 143 mg/dL (74-106); Potassium 4.2 mmol/L (3.5-5.1); Sodium 143 mmol/L (136-145)
== END 2024-06-06 15:52 | disposition home or self-care (01) ==
LOC: NCHCN 15:51
PROVIDERS: PCP Nurse Practitioner Family; Visit Provider Nurse Practitioner Family
DX: E87.5 Hyperkalemia (principal)
CPT/HCPCS: 80048

== ENCOUNTER 2024-06-13 01:02 | Outpatient (CLI) | payer MEDICARE, SELFPAY ==
--- NOTE | 2024-06-13 10:00 | DI.US_ITS ---
Exam(s) US ABDOMEN LIMITED EXAM: US ABDOMEN LIMITED CLINICAL HISTORY: FATTY LIVER K76.0 TECHNIQUE: Ultrasound abdomen performed using standard protocol. COMPARISON: US US ABDOMEN from 06/11/2021 US US ABDOMEN LIMITED from 05/29/2023 FINDINGS: LIVER: 16.9 cm in length, decreased size from prior... Increasedechogenicity, consistent with moder ate hepatic steatosis. Area of decreased echogenicity is now seen in the left lobe which has somewha t irregular appearance. Small area of focal fatty sparing is noted near the gallbladder. GALLBLADDER: 1.5 cm gallstone again noted. No evidence of wall thickening. No pericholecystic fluid identified. JONES'S SIGN: Negative. BILIARY SYSTEM: No intrahepatic or extrahepatic biliary ductal dilation. RIGHT KIDNEY: Normal size. No evidence of renal calculi. No evidence of hydronephrosis. No suspicious renal mass. No cyst identified. PANCREAS: Normal where visualized. ABDOMINAL AORTA AND IVC: Visualized portions normal caliber. ASCITES: None seen. IMPRESSION: Hepatic steatosis. New area of decreased attenuation in the left lobe the liver. This could represe nt additional area of arm focal fatty sparing however malignancy is not excluded. Multiphase CT is r ecommended for further evaluatio.. Unexpected findings DATA REPOSITORY:
== END 2024-06-13 01:22 ==
LOC: DI 01:02
PROVIDERS: PCP Nurse Practitioner Family; Visit Provider Nurse Practitioner Family
DX: K76.0 Fatty (change of) liver, not elsewhere classified (principal)
CPT/HCPCS: 76705

== ENCOUNTER 2024-06-22 01:37 | Outpatient (CLI) | payer MEDICARE, SELFPAY ==
--- NOTE | 2024-06-22 | DI.CT_ITS ---
Exam(s) CT ABDOMEN WO/W EXAM: CT ABDOMEN WO/W CLINICAL HISTORY: K76.0 Fatty(change of)liver, not elsewhere specified TECHNIQUE: Imaging Protocol: Axial computed tomography images with coronal and sagittal reformatted images were created and reviewed CONTRAST MATERIAL: Intravenous: Omnipaque 350 contrast volume:100 mL Oral: No COMPARISON: US US ABDOMEN LIMITED from 06/13/2024 FINDINGS: ABDOMEN: Lung Bases: Coronary artery calcifications are present. There is calcification of the mitral valve. There is a calcified granuloma in the right lower lobe. Liver: Normal density. No measurable mass. Portal, Superior Mesenteric, and Splenic Veins: Unremarkable. Gallbladder and Biliary Tract: There is a gallstone present. No biliary ductal dilatation. Pancreas: Normal density, no abnormal calcifications or inflammatory process. Spleen: Normal. Adrenals: No masses seen. Kidneys: Normal size, contour and axis. No radiodense stones or obstructive uropathy. There is a simp le cyst in the midpole of the right kidney. No follow-up is recommended. No suspicious renal masses are present. The inferior left kidney is not included on the postcontrast images. Abdominal Aorta: Abdominal portion non-dilated. Atherosclerotic calcification is present. Bowel: No obstruction or bowel wall thickening. There is diverticulosis seen in the colon but no evid ence of acute diverticulitis. Peritoneal Cavity: No ascites, collection or mesenteric inflammatory response. No free air. Lymph Nodes: Within normal limits. Bones: Unremarkable. Soft Tissues: Unremarkable. IMPRESSION: 1. There is no evidence of a hepatic mass. The liver has a normal appearance. 2. Cholelithiasis. No biliary ductal dilatation. 3. Colonic diverticulosis without evidence of acute diverticulitis. RADIATION DOSE DELIVERED: 1,834.06mGy.cm Total DLP DATA REPOSITORY: All CT scans at this facility are submitted to the National Radiology Data Registry (NRDR) Dose Index Registry (DIR) with the [employer] (ACR). RADIATION OPTIMIZATION: All CT scans at this facility use at least one of these dose optimization te chniques: automated exposure control; mA and/or kV adjustment per patient size (includes targeted exa ms where dose is matched to clinical indication); or iterative reconstruction.
[2024-06-22] MEDS: Omnipaque 350 MG/ML 500 ML BTL-Imaging package IJ (08:48)
[2024-06-22] MEDS: Normal Saline - Diluent 50 ML VIAL IJ (08:49)
== END 2024-06-22 01:57 ==
LOC: DI 01:37
PROVIDERS: PCP Nurse Practitioner Family; Visit Provider Nurse Practitioner Family
DX: K76.0 Fatty (change of) liver, not elsewhere classified (principal); K57.30 Diverticulosis of large intestine without perforation or abscess without bleeding
CPT/HCPCS: 74170

== ENCOUNTER 2024-11-29 13:16 | Outpatient (REF) | payer MEDICARE, SELFPAY ==
[2024-11-29 14:58] LABS: Anion Gap 5.3 mmol/L (3-11); BUN 20 mg/dL (7-18); CO2 32.7 mmol/L (21.0-32.0); CREATININE 1.6 mg/dL (0.70-1.30); Calcium 9.5 mg/dL (8.5-10.1); Chloride 104 mmol/L (98-107); Glucose 456 mg/dL (74-106); Potassium 5.5 mmol/L (3.5-5.1); Sodium 142 mmol/L (136-145)
== END 2024-11-29 13:17 | disposition home or self-care (01) ==
LOC: NCHCN 13:16
PROVIDERS: PCP Nurse Practitioner Family; Visit Provider Nurse Practitioner Family
DX: E11.9 Type 2 diabetes mellitus without complications (principal)
CPT/HCPCS: 80048; 83036

== ENCOUNTER 2024-12-21 09:49 | Outpatient (REF) | payer MEDICARE, SELFPAY ==
[2024-12-23 10:00] LABS: Measles IgG Antibody Positive (See Note); Mumps Antibody IgG Negative (See Note); Rubella IgG Ab (UVM) Positive (See Note)
[2024-12-27 17:46] LABS: Polio 1 Titer >1:128; Polio 3 Titer >1:128
== END 2024-12-21 09:50 | disposition home or self-care (01) ==
LOC: NCHCN 09:49
PROVIDERS: PCP Nurse Practitioner Family; Visit Provider Nurse Practitioner Family
DX: Z78.9 Other specified health status (principal); Z11.59 Encounter for screening for other viral diseases
CPT/HCPCS: 86658; 86735; 86762; 86765

== ENCOUNTER 2025-01-27 11:55 | Outpatient (REF) | payer MEDICARE, SELFPAY ==
[2025-01-27 14:45] LABS: Anion Gap 8.9 mmol/L (3-11); BUN 20 mg/dL (7-18); CO2 29.1 mmol/L (21.0-32.0); CREATININE 1.2 mg/dL (0.70-1.30); Calcium 9.5 mg/dL (8.5-10.1); Chloride 98 mmol/L (98-107); Estimated GFR 64.25 (mL/min/1.73m2); Glucose 212 mg/dL (74-106); Potassium 4.5 mmol/L (3.5-5.1); Sodium 136 mmol/L (136-145)
== END 2025-01-27 11:56 | disposition home or self-care (01) ==
LOC: NCHCN 11:55
PROVIDERS: PCP Nurse Practitioner Family; Visit Provider Nurse Practitioner Family
DX: I35.0 Nonrheumatic aortic (valve) stenosis (principal); I49.3 Ventricular premature depolarization; I42.9 Cardiomyopathy, unspecified; I10 Essential (primary) hypertension; N18.9 Chronic kidney disease, unspecified; I50.9 Heart failure, unspecified
CPT/HCPCS: 80048

== ENCOUNTER → 2025-04-06 10:24 | Outpatient (BNVA) | payer MEDICARE, SELFPAY | PROVIDERS: PCP Nurse Practitioner Family; Referring Provider Nurse Practitioner Family; Visit Provider Physical Therapy Assistant | DX: Z12.11 Encounter for screening for malignant neoplasm of colon (principal); Z86.0101 Personal history of adenomatous and serrated colon polyps; I10 Essential (primary) hypertension; E11.9 Type 2 diabetes mellitus without complications | CPT/HCPCS: S0285 ==

== ENCOUNTER 2025-04-20 09:46 | Day surgery (SDC) | payer MEDICARE, SELFPAY ==
[2025-04-20 10:15] VITALS: BP 113/66; PULSE 79; RESP 20; TEMP 36.2; O2SAT 97
[2025-04-20] MEDS: Lactated Ringers 1,000 ML 80 ML IV (11:15)
--- NOTE | 2025-04-20 11:30 | W.ANESPRE ---
General Info Height: 6 ft 4 in Weight: 114.2 kg Body Mass Index (BMI): 30.6 Surgical Procedure: Operation Date: 04/20/25 11:35 Proposed Procedure Side Surgeon mora Ragland MD Meds Allergies and Home Medications Allergies Allergy/AdvReac Type Severity Reaction Status Date / Time nabumetone (From Relafen) Allergy Mild unknown Verified 04/20/25 10:27 enalapril Allergy Unknown Other (See Verified 04/20/25 10:27 Comment) hay fever Allergy Mild uri Uncoded 04/20/25 10:27 symptoms Home Medication ?Medication ?Instructions ?Recorded krill oil 500 mg capsule 1 cap PO DAILY 10/28/13 multivitamin 1 cap PO DAILY 10/28/13 simvastatin 10 mg tablet 10 mg PO HS 04/08/16 metformin 1,000 mg tablet 1,000 mg PO BID 02/23/19 allopurinol 100 mg tablet 100 mg PO HS 03/21/21 colchicine 0.6 mg capsule 0.6 mg PO BID 03/21/21 metoprolol succinate 50 mg 50 mg PO DAILY 03/21/21 tablet,extended release 24 hr aspirin 81 mg tablet,delayed 81 mg PO DAILY 01/23/25 release (Aspir-) doxepin 10 mg capsule 10 mg PO QHS PRN 01/23/25 bisacodyl 5 mg tablet,delayed 5 mg PO ONCE #4 tabs 04/06/25 release (Dulcolax (bisacodyl)) dapagliflozin propanediol 5 mg 10 mg PO DAILY 04/06/25 tablet (Farxiga) polyethylene glycol 3350 17 17 g PO ONCE #238 grams 04/06/25 gram/dose oral powder tamsulosin 0.4 mg capsule (Flomax) 0.8 mg PO HS 04/06/25 Current Visit Medications: Current Medications Generic Name Dose Route Start Last Admin Trade Name Freq PRN Reason Stop Dose Admin Ringer's Solution 1,000 mls @ 80 mls/hr 04/20/25 06:00 04/20/25 11:15 IV 04/20/25 23:59 80 mls/hr INFUSION KENY Administration IV Miscellaneous Supplies 1 each 04/20/25 06:00 Iv Access IV 04/20/25 23:59 DIRECTED KENY Sodium Biphosphate/Sodium Phosphate 133 - 266 ml 04/19/25 14:23 Na Phosphate Enema-Adult 133 Ml Btl [place] 05/19/25 14:22 PRN PRN Sodium Chloride 0 ml 04/20/25 06:00 Normal Saline Flush 10 Ml Syr IV 04/20/25 23:59 PRN PRN Sodium Chloride 0 ml 04/20/25 06:00 Normal Saline 10 Ml Vial IJ 04/20/25 23:59 DIRECTED PRN Sterile Water 0 ml 04/20/25 06:00 Water,Injection,Sterile 10 Ml Vial IJ 04/20/25 23:59 DIRECTED PRN PFSH Active Problems Active Problems: Problem Status Onset Code History of cataract surgery Chronic Z98.49 Neuropathy Acute G62.9 Ulcer of foot due to diabetes mellitus Acute E11.621, L97.509 Erectile dysfunction Acute N52.9 Hernia, ventral Acute K43.9 Pedal edema Acute R60.0 Heart failure Acute I50.9 Ventricular bigeminy Acute I49.8 Fatty liver disease, nonalcoholic Acute K76.0 Gallstones Acute K80.20 Gout Chronic M10.9 Renal insufficiency Chronic N28.9 Retinopathy Acute H35.00 BPH (benign prostatic hyperplasia) Chronic N40.0 DENNIS (obstructive sleep apnea) Chronic G47.33 Dyspepsia Acute R10.13 Obesity Chronic E66.9 Hepatosplenomegaly Acute R16.2 Screening for colon cancer Acute Z12.11 Allergic rhinitis due to allergen Acute J30.9 Nasal septal spur Chronic J34.89 Nasal septal deviation Chronic J34.2 Nasal polyps Chronic J33.9 Colorectal polyps Acute K63.5 Diverticulosis Acute K57.90 History of colonoscopy with polypectomy Acute ~06/29/18 Z98.890, Z86.010 Cardiomyopathy Chronic I42.9 Aortic stenosis, mild Chronic I35.0 Hypertension Chronic I10 Chronic venous insufficiency Chronic I87.2 Diabetes Chronic E11.9 Medical History Medical History Tubular adenoma of colon Tubulovillous adenoma of colon Surgical History Surgical History (Updated 04/20/25 @ 11:08 by Jenna Todd) History of colonoscopy (~08/2021) History of total right knee replacement (TKR) Tobacco Smoking/Tobacco Use Status: Former Tobacco Use Alcohol Alcohol Intake: current Alcohol intake frequency: 0-2 drinks per day Alcohol type: beer Substance Use Substance use: Never Substance use type: does not use Vital Signs and Lab Results Vital Signs Most Recent Vital Signs in EMR: Most Recent Vital Signs Temp Pulse Resp BP Pulse Ox 36.2 C L 79 20 113/66 97 04/20/25 10:15 04/20/25 10:15 04/20/25 10:15 04/20/25 10:15 04/20/25 10:15 Point of Care Results Point of Care Results: Finger Stick Blood Glucose 181 04/20/25 10:54 Imaging and Studies Imaging and Studies Study information below may be from another EMR and interpreted by another provider. Please see original notes in EMR for more complete details. Echocardiogram Summary: 05/05/2017: 1. Left ventricle: The cavity size was normal. Wall thickness was normal. Systolic function was mildly reduced. The estimated ejection fraction was 45-50%. Diffuse hypokinesis. 2. Aortic valve: Valve mobility was restricted. There was mild stenosis. There was trivial regurgitation. VTI ratio of LVOT to aortic valve: 0.43. Valve area (VTI): 1.5cm^2. 3. Mitral valve: Moderately calcified annulus. Mildly thickened leaflets. There was mild regurgitation. 4. Left atrium: The atrium was mildly dilated. 5. Right ventricle: The cavity size was normal. Wall thickness was normal. Systolic function was normal. Anesthesia Assessment and Plan Anesthesia History Personal History: No History of Anesthesia Complications Family History: No Family History of Anesthesia Complications Exercise Tolerance Exercise Tolerance: Metabolic Equivalents>4 Implantable Cardiac Device Does patient have a Pacemaker or an ICD?: No Airway Exam Known Difficult Airway: No Mallampati Class: 2 Mouth Opening: Normal (> 3cm) Thyromental Distance: Greater than 3 cm Neck Range of Motion: Full ROM Neck Circumference: Thick Teeth Condition: Removable Dentures/Plates Upper and Removable Dentures/Plates Lower ASA Classification ASA Score: ASA 2 Emergency Case?: No Anesthesia Plan Resuscitation Status: Full Code Anesthesia Technique: General Anesthesia Airway Planned: Natural Airway Monitors Used: Standard Monitors Preoperative Comments:: 75 yo for colo. Sig PMHx: HTN, DENNIS, neuropathy, DM, former smoker, BPH.
[2025-04-20 13:02] VITALS: BMI 30.6
--- NOTE | 2025-04-20 13:02 | W.ANESPRE ---
General Info Date of Service Date Performed: 04/20/25 Height: 6 ft 4 in Weight: 114.2 kg Body Mass Index (BMI): 30.6 Surgical Procedure: Operation Date: 04/20/25 11:35 Proposed Procedure Side Surgeon mora Ragland MD Meds Allergies and Home Medications Allergies Allergy/AdvReac Type Severity Reaction Status Date / Time nabumetone (From Relafen) Allergy Mild unknown Verified 04/20/25 10:27 enalapril Allergy Unknown Other (See Verified 04/20/25 10:27 Comment) hay fever Allergy Mild uri Uncoded 04/20/25 10:27 symptoms Home Medication ?Medication ?Instructions ?Recorded krill oil 500 mg capsule 1 cap PO DAILY 10/28/13 multivitamin 1 cap PO DAILY 10/28/13 simvastatin 10 mg tablet 10 mg PO HS 04/08/16 metformin 1,000 mg tablet 1,000 mg PO BID 02/23/19 allopurinol 100 mg tablet 100 mg PO HS 03/21/21 colchicine 0.6 mg capsule 0.6 mg PO BID 03/21/21 metoprolol succinate 50 mg 50 mg PO DAILY 03/21/21 tablet,extended release 24 hr aspirin 81 mg tablet,delayed 81 mg PO DAILY 01/23/25 release (Aspir-) doxepin 10 mg capsule 10 mg PO QHS PRN 01/23/25 bisacodyl 5 mg tablet,delayed 5 mg PO ONCE #4 tabs 04/06/25 release (Dulcolax (bisacodyl)) dapagliflozin propanediol 5 mg 10 mg PO DAILY 04/06/25 tablet (Farxiga) polyethylene glycol 3350 17 17 g PO ONCE #238 grams 04/06/25 gram/dose oral powder tamsulosin 0.4 mg capsule (Flomax) 0.8 mg PO HS 04/06/25 Current Visit Medications: Current Medications Generic Name Dose Route Start Last Admin Trade Name Freq PRN Reason Stop Dose Admin Ringer's Solution 1,000 mls @ 80 mls/hr 04/20/25 06:00 04/20/25 11:15 IV 04/20/25 23:59 80 mls/hr INFUSION KENY Administration IV Miscellaneous Supplies 1 each 04/20/25 06:00 Iv Access IV 04/20/25 23:59 DIRECTED KENY Sodium Biphosphate/Sodium Phosphate 133 - 266 ml 04/19/25 14:23 Na Phosphate Enema-Adult 133 Ml Btl LA 05/19/25 14:22 PRN PRN Sodium Chloride 0 ml 04/20/25 06:00 Normal Saline Flush 10 Ml Syr IV 04/20/25 23:59 PRN PRN Sodium Chloride 0 ml 04/20/25 06:00 Normal Saline 10 Ml Vial IJ 04/20/25 23:59 DIRECTED PRN Sterile Water 0 ml 04/20/25 06:00 Water,Injection,Sterile 10 Ml Vial IJ 04/20/25 23:59 DIRECTED PRN PFSH Active Problems Active Problems: Problem Status Onset Code History of cataract surgery Chronic Z98.49 Neuropathy Acute G62.9 Ulcer of foot due to diabetes mellitus Acute E11.621, L97.509 Erectile dysfunction Acute N52.9 Hernia, ventral Acute K43.9 Pedal edema Acute R60.0 Heart failure Acute I50.9 Ventricular bigeminy Acute I49.8 Fatty liver disease, nonalcoholic Acute K76.0 Gallstones Acute K80.20 Gout Chronic M10.9 Renal insufficiency Chronic N28.9 Retinopathy Acute H35.00 BPH (benign prostatic hyperplasia) Chronic N40.0 DENNIS (obstructive sleep apnea) Chronic G47.33 Dyspepsia Acute R10.13 Obesity Chronic E66.9 Hepatosplenomegaly Acute R16.2 Screening for colon cancer Acute Z12.11 Allergic rhinitis due to allergen Acute J30.9 Nasal septal spur Chronic J34.89 Nasal septal deviation Chronic J34.2 Nasal polyps Chronic J33.9 Colorectal polyps Acute K63.5 Diverticulosis Acute K57.90 History of colonoscopy with polypectomy Acute ~06/29/18 Z98.890, Z86.010 Cardiomyopathy Chronic I42.9 Aortic stenosis, mild Chronic I35.0 Hypertension Chronic I10 Chronic venous insufficiency Chronic I87.2 Diabetes Chronic E11.9 Medical History Medical History Tubular adenoma of colon Tubulovillous adenoma of colon Surgical History Surgical History (Updated 04/20/25 @ 11:08 by Jenna Todd) History of colonoscopy (~08/2021) History of total right knee replacement (TKR) Tobacco Smoking/Tobacco Use Status: Former Tobacco Use Alcohol Alcohol Intake: current Alcohol intake frequency: 0-2 drinks per day Alcohol type: beer Substance Use Substance use: Never Substance use type: does not use Vital Signs and Lab Results Vital Signs Most Recent Vital Signs in EMR: Most Recent Vital Signs Temp Pulse Resp BP Pulse Ox 36.2 C L 79 20 113/66 97 04/20/25 10:15 04/20/25 10:15 04/20/25 10:15 04/20/25 10:15 04/20/25 10:15 Point of Care Results Point of Care Results: Finger Stick Blood Glucose 181 04/20/25 10:54 Imaging and Studies Imaging and Studies Study information below may be from another EMR and interpreted by another provider. Please see original notes in EMR for more complete details. Echocardiogram Summary: 05/05/2017: 1. Left ventricle: The cavity size was normal. Wall thickness was normal. Systolic function was mildly reduced. The estimated ejection fraction was 45-50%. Diffuse hypokinesis. 2. Aortic valve: Valve mobility was restricted. There was mild stenosis. There was trivial regurgitation. VTI ratio of LVOT to aortic valve: 0.43. Valve area (VTI): 1.5cm^2. 3. Mitral valve: Moderately calcified annulus. Mildly thickened leaflets. There was mild regurgitation. 4. Left atrium: The atrium was mildly dilated. 5. Right ventricle: The cavity size was normal. Wall thickness was normal. Systolic function was normal. Anesthesia Assessment and Plan Anesthesia History Personal History: No History of Anesthesia Complications Family History: No Family History of Anesthesia Complications Exercise Tolerance Exercise Tolerance: Metabolic Equivalents>4 Pertinent Negatives Pertinent Negatives: No Symptoms of GERD Cardiac & Pulmonary Exam Cardiac Exam: Normal S1/S2 Heart Sounds Pulmonary Exam: Clear Bilateral Breath Sounds Implantable Cardiac Device Does patient have a Pacemaker or an ICD?: No Airway Exam Known Difficult Airway: No Mallampati Class: 2 Mouth Opening: Normal (> 3cm) Thyromental Distance: Greater than 3 cm Neck Range of Motion: Full ROM Neck Circumference: Thick Teeth Condition: Removable Dentures/Plates Upper and Removable Dentures/Plates Lower ASA Classification ASA Score: ASA 3 Emergency Case?: No NPO Status NPO Status: NPO Clears >2 hours, Solids >8 hours Anesthesia Plan Resuscitation Status: Full Code Anesthesia Technique: General Anesthesia Airway Planned: Natural Airway Monitors Used: Standard Monitors
--- NOTE | 2025-04-20 13:42 | BOWEL_PTH ---
PATIENT: Carl Crespo LOC: [facility] U#:[id number] AGE/SX: 75/M ROOM: RE04/20/[address]: Kristin Ragland MD : 1950 BED: DIS: 04/20/2025 SPEC #: [id number] RECD: 04/20/25 15:59 STATUS: JOHNNIE RE #: [id number] NADEEN: 04/20/25 13:[address]: Kristin Ragland DEPT: Surgical Specimen RECD BY: Darby Jeffrey ENTERED: 04/20/25 16:00 SP TYPE: Bowel OTHR DR: Maryann Spaulding Tissues: 1 - BIOPSY BOWEL 2 - BIOPSY BOWEL Procedures: GROSS AND MICRO LEVEL 4 Comments: [id number]
--- NOTE | 2025-04-20 14:06 | W.COLOREPORT ---
Date of service: 04/20/25 Time of Service: 14:06 Colonoscopy Report Pre-op diagnosis general: History of adenomatous colon polyps Post-op diagnosis procedure note: same Procedure: Colonoscopy with hot snare polypectomy and cold forceps polypectomy Surgeon: Kristin Ragland Anesthesia Type: General:No Airway Estimated blood loss (mL): 3 Pathology: none sent (1. transverse colon polyp. 2. descending colon polyp) Complications: None Disposition: same day Indications: screening for colorectal cancer Prep: Miralax/Dulcolax (fair) Procedure Description: Informed consent was obtained and the patient was taken to the procedure area. The patient was placed in left lateral decubitus position on the procedure table. Timeout was performed. Anesthesia was induced. A lubricated colonoscope was inserted through the anus and passed to the cecum. The cecum was identified by the ileocecal valve and the appendiceal orifice. The scope was then slowly withdrawn and the colonic and rectal mucosa examined. TI intubated and examined, it appears normal. Transverse colon polyp 15mm by 10mm in size, irregular, sessile. Excised piecemeal with hot snare and retrieved with a Ma net through the anus and with suction trap. Two Resolution endoclips placed for hemostasis and to reapprximate the mucosa. descending colon flat polyp 7mm round excised piecemeal with cold forceps. Significant sigmoid diverticulosis with tortuosity. Diverticula are both small and large mouthed, scattered through to the cecum. The scope was retroflexed in the anorectal junction examined. Uncomplicated internal hemorrhoids present. Assessment and plan; transverse colon polyp 15mm by 10mm descending colon polyp diveticulosis, severe Timing of next colonoscopy will depend on path of polyps. I would recommend a follow up in a year given larger sized lesion with piecemeal removal in the transverse colon, even if adenomatous without high risk serrated or dysplastic features. Additionally, prep was only fair, not good, and other lesions may have been missed.
--- NOTE | 2025-04-20 14:12 | W.PM.DSUDISC ---
Date of service: 04/20/25 Discharge Plan Disposition Patient Disposition: Home Condition: Stable Discharge Details Attending Provider: Kristin Ragland Primary Care Provider: Maryann Spaulding Home Meds and New Rx's Prescriptions: Continued metformin 1,000 mg tablet 1,000 mg PO BID tamsulosin [Flomax] 0.4 mg capsule 0.8 mg PO HS simvastatin 10 MG tablet 10 mg PO HS allopurinol 100 mg tablet 100 mg PO HS metoprolol succinate 50 mg tablet extended release 24 hr 50 mg PO DAILY colchicine 0.6 mg capsule 0.6 mg PO BID aspirin [Aspir-81] 81 mg tablet,delayed release (DR/EC) 81 mg PO DAILY doxepin 10 mg capsule 10 mg PO QHS PRN dapagliflozin propanediol [Farxiga] 5 mg tablet 10 mg PO DAILY multivitamin 1 EACH capsule 1 cap PO DAILY krill oil 500 MG capsule 1 cap PO DAILY Discontinued bisacodyl [Dulcolax (bisacodyl)] 5 mg tablet,delayed release (DR/EC) 5 mg PO ONCE Qty: 4 0RF Rx Instructions: Take per colonoscopy instructions provided by ordering providers office polyethylene glycol 3350 17 gram/dose powder 17 g PO ONCE Qty: 238 0RF Rx Instructions: Take per colonoscopy instructions provided by ordering providers office Discharge Instructions Additional Instructions: One large polyp seen and removed from the transverse colon, one medium sized polyp seen and removed from the descending colon. Large amount of sigmoid and other colon areas diverticulosis. Timing of next colonoscopy will depend on biopsies of polyps. I would recommend a follow up in a year given larger sized lesion in the transverse colon, even if plain adenomatous without high risk serrated or dysplastic features. Additionally, prep was only fair, not good, and other lesions may have been missed. Discharge Orders Discharge Orders: Discharge Order (Routine); Ordered 04/20/25 Ordered By: Kristin Ragland DS: Diagnosis Discharge Diagnosis (1) Encounter for colonoscopy due to history of adenomatous colonic polyps: Status: Acute (2) Polyp of transverse colon: Status: Acute (3) Polyp of descending colon: Status: Acute (4) Diverticulosis large intestine w/o perforation or abscess w/o bleeding: Status: Acute
[2025-04-20 14:13] VITALS: BP 104/65; PULSE 76; RESP 20; TEMP 36.3; O2SAT 97
--- NOTE | 2025-04-20 14:31 | W.ANESPOSTOP ---
Postoperative Evaluation Date, Time and Location Date Performed: 04/20/25 Time Performed: 14:32 Patient Location: Day Surgery Unit Vital Signs Most Recent Imported Vital Signs: Most Recent Vital Signs Temp Pulse Resp BP Pulse Ox 36.3 C L 76 20 104/65 97 04/20/25 14:13 04/20/25 14:13 04/20/25 14:13 04/20/25 14:13 04/20/25 14:13 Pain Score Most Recent Pain Score: Most Recent Pain Score Pain Level 0 04/20/25 14:13 Assessment Mental Status: Awake (Alert & Oriented to Patient Baseline) Airway and Respiratory Function: Patent airway with normal (patient baseline) respiratory exam Cardiovascular Function: Hemodynamically Stable Hydration Status: Adequately Hydrated Nausea & Vomiting: No Nausea or Vomiting Pain: Pt. Denies Any Pain Peripheral Nerve Block: Patient did not receive a nerve block
[2025-04-20 14:38] VITALS: BP 108/63; PULSE 65; RESP 18; TEMP 36.2; O2SAT 98
== END 2025-04-20 15:00 | disposition home or self-care (01) ==
PROVIDERS: PCP Nurse Practitioner Family; Visit Provider Surgery
PROC: 0DJD8ZZ Inspection of Lower Intestinal Tract, Via Natural or Artificial Opening Endoscopic (ICD-10-PCS; CPT 45378; principal; 2025-04-20 11:30)
DX: Z12.11 Encounter for screening for malignant neoplasm of colon (principal); D12.4 Benign neoplasm of descending colon; K57.30 Diverticulosis of large intestine without perforation or abscess without bleeding; D37.4 Neoplasm of uncertain behavior of colon
CPT/HCPCS: 45385; 45380; 88305; J2003; J2704

== ENCOUNTER 2025-05-31 10:46 | Outpatient (REF) | payer MEDICARE, SELFPAY ==
[2025-05-31 15:58] LABS: Abs Immature Grans 0.02 10^3/uL (0.0-0.06); HCT 44.9 % (40.0-50.0); HGB 15.5 g/dL (13.5-17.5); Immature Grans % 0.4 %; MCH 32.4 pg (27.0-33.0); MCHC 34.5 % (32.0-36.0); MCV 94 fL (80-95); MPV 10.0 fL (8.0-11.0); Platelet Count 141 10^3/uL (130-400); RBC 4.79 10^6/uL (4.36-5.78); RDW 13.2 % (11.8-14.1); RDW-SD 45.5 fL; WBC 5.01 10^3/uL (4.4-10.8)
[2025-05-31 16:24] LABS: Hemoglobin A1C 6.5 % (<5.7)
[2025-05-31 16:44] LABS: ALT 38 U/L (16-63); AST 21 U/L (15-37); Albumin 3.8 g/dL (3.4-5.0); Alkaline Phosphatase 52 U/L (46-116); Anion Gap 12.6 mmol/L (3-11); BUN 15 mg/dL (7-18); Bilirubin, Total 0.8 mg/dL (0.2-1.0); CO2 25.4 mmol/L (21.0-32.0); Calcium 8.9 mg/dL (8.5-10.1); Chloride 104 mmol/L (98-107); Estimated GFR 53.07 (mL/min/1.73m2); Glucose 333 mg/dL (74-106); Magnesium 1.8 mg/dL (1.8-2.4); Potassium 4.0 mmol/L (3.5-5.1); Sodium 142 mmol/L (136-145); Total Protein 6.8 g/dL (6.4-8.2); Vitamin B12 310 pg/mL (193-986)
[2025-05-31 16:57] LABS: Uric Acid 5.9 mg/dL (3.5-7.2)
[2025-05-31 17:16] LABS: COMMENT (LAB VIEW ONLY) 47.03 mg/dL; Microalb ug/mg Crea 85.9 ug/mg Cr
== END 2025-05-31 10:47 | disposition home or self-care (01) ==
LOC: NCHCN 10:46
PROVIDERS: PCP Nurse Practitioner Family; Visit Provider Nurse Practitioner Family
DX: E11.9 Type 2 diabetes mellitus without complications (principal); K76.0 Fatty (change of) liver, not elsewhere classified; N40.1 Benign prostatic hyperplasia with lower urinary tract symptoms; M10.9 Gout, unspecified
CPT/HCPCS: 80053; 82043; 82570; 82607; 83036; 83735; 84154; 84550; 85025

== ENCOUNTER → 2025-06-15 03:42 | Outpatient (CLI) | payer MEDICARE, SELFPAY ==
--- NOTE | 2025-06-15 | DI.US_ITS ---
Exam(s) US ABDOMEN LIMITED EXAM: US ABDOMEN LIMITED CLINICAL HISTORY: FATTY LIVER K76.0 STEATOTIC LIVER DISEASE TECHNIQUE: Ultrasound abdomen performed using standard protocol. COMPARISON: US US ABDOMEN LIMITED from 06/13/[address] ABDOMEN WO/W from 06/22/2024 FINDINGS: There is no ascites evident. LIVER: Upper normal size. Liver is hyperechoic indicating steatosis. A by 2.8 x 2.2 cm relatively hypoechoic area in the left hepatic lobe is similar to the prior ultrasound of 06/13/2024 and probably represents focal fatty sparing. There was no discernible mass at this level on contrast infused CT scan performed 06/22/2024. GALLBLADDER/BILIARY: Cholelithiasis is again noted. There is a 12 millimeter gallstone in the gallbladder neck region. Gallbladder is not edematous and there is no pericholecystic fluid. The common hepatic duct isnot dilated, measuring 4-5mm at the level of shanita hepatis. PANCREAS: There is no evidence of pancreatic mass nor dilatation of the pancreatic duct. RIGHT KIDNEY:No evidence of solid mass, calculus, nor hydronephrosis. No cortical cysts evident. IMPRESSION: 1. Cholelithiasis again noted. No evidence of acute cholecystitis nor dilatation of biliary tree. 2. Hepatic steatosis again noted and there is again noted an area of focal fatty sparing in the left hepatic lobe cyst, similar to the prior ultrasound examination of 06/13/2024. 3. No other right upper quadrant ultrasound findings and there is no ascites DATA REPOSITORY:
== END ==
PROVIDERS: PCP Nurse Practitioner Family; Visit Provider Nurse Practitioner Family
DX: K76.0 Fatty (change of) liver, not elsewhere classified (principal); K80.80 Other cholelithiasis without obstruction
CPT/HCPCS: 76705